=== PATIENT | male | born 1965 | race Caucasian/White ===

== ENCOUNTER 2019-09-13 06:19 | Day surgery (SDC) | payer MEDICARE, OTHER ==
[2019-09-09 10:20] VITALS: BMI 17.6
[~2019-09-13 06:19] MED LIST: DEXAMETHASONE SOD PHOSPHATE 10 MG/ML 1 ML VIAL IV ONE; HEPARIN SODIUM,PORCINE 5,000 UNIT/ML 1 ML VIAL SQ ONE; HYDROmorphone 0.5 MG/0.5 ML SYRINGE IVP PRN; LACTATED RINGERS 1,000 ML IV SCH; MIDAZOLAM 2 MG/2 ML VIAL IV PRN; Pre Op ABX Message 1 EACH MISC MISCELLANE ONE; SCOPOLAMINE 1.5MG/72HR PATCH TRANSDERM ONE
[2019-09-13] MEDS ORDERED: LIDOCAINE 1% 20 ML VIAL (10MG/ML) FOR IV START INTRADERMA ONE (07:04)
[2019-09-13] MEDS: ONDANSETRON 4 MG/2 ML VIAL IVP ONE ×2 (07:04→09:36)
[2019-09-13] MEDS ORDERED: fentaNYL (PF) 50 MCG/ML 2 ML AMP ONE (07:40)
[2019-09-13] MEDS ORDERED: MIDAZOLAM 2 MG/2 ML VIAL ONE (07:40)
[2019-09-13] MEDS ORDERED: PROPOFOL 10 MG/ML 20 ML VIAL IV ONE (07:40)
[2019-09-13] MEDS ORDERED: LIDOCAINE 1% INJ 10MG/ML (20 ML MDV) ONE (07:40)
--- NOTE | 2019-09-13 07:47 | P.GSHP ---
History of Present Illness H&P Date: 09/13/19 Chief Complaint: Right leg weakness This a 54-year-old male who is undergoing workup for his lower extremity weakness. Patient presents today for right thigh muscle biopsy Past Medical History Past Medical History: Asthma, COPD, Myocardial Infarction ([place]), Neurologic Disorder, Osteoarthritis (OA) Additional Past Medical History / Comment(s): DIFFICULTY SWALLOWING, ABDOMINAL PAIN, UNDIAGNOSED MOTOR NEURON DISORDER, "HAS OCCASIONAL DRAG FOOT" marfans syndrome, OCC. PANCREATITIS Last Myocardial Infarction Date:: unknown History of Any Multi-Drug Resistant Organisms: None Reported Past Surgical History: Heart Catheterization, Orthopedic Surgery Additional Past Surgical History / Comment(s): NASAL POLYPS, RT KNEE ARTHROSCOPY , COLONOSCOPY, EGD Past Anesthesia/Blood Transfusion Reactions: Motion Sickness Smoking Status: Former smoker - Past Family History Father Family Medical History: Cancer Medications and Allergies Home Medications Medication Instructions Recorded Confirmed Type ALPRAZolam [Xanax] 0.5 - 1 tab PO TID PRN 08/25/18 09/13/19 History Baclofen [Lioresal] 10 mg PO TID PRN 08/25/18 09/13/19 History Cholecalciferol [Vitamin D3] 2,000 unit PO DAILY 08/25/18 09/13/19 History Ferrous Sulfate [Feosol] 325 mg PO DAILY 08/25/18 09/13/19 History Glucosamine-Chondr 500-400Mg 1 each PO DAILY 08/25/18 09/13/19 History HYDROcodone/APAP 10-325MG [[place] 1 tab PO BID 08/25/18 09/13/19 History 10-325] Multivitamin [Men's Multi-Vitamin] 1 each PO DAILY 08/25/18 09/13/19 History Omeprazole [PriLOSEC] 40 mg PO DAILY 09/21/18 09/13/19 History Allergies Allergy/AdvReac Type Severity Reaction Status Date / Time bacitracin Allergy Rash/Hives Verified 09/13/19 06:46 [From Neosporin ([id number])] Egg Derived Allergy Anaphylaxis Verified 09/13/19 06:46 latex Allergy Rash/Hives Verified 09/13/19 06:46 neomycin Allergy Rash/Hives Verified 09/13/19 06:46 [From Neosporin ([id number])] polymyxin B Allergy Rash/Hives Verified 09/13/19 06:46 [From Neosporin ([id number])] sulfamethoxazole Allergy "LEGS BURN" Verified 09/13/19 06:46 [From Bactrim] trimethoprim [From Bactrim] Allergy "LEGS BURN" Verified 09/13/19 06:46 FLU VACCINE Allergy "DEATHLY Uncoded 09/13/19 06:46 ILL R/T EGG ALLERGY" Surgical - Exam Vital Signs Temp Pulse Resp BP Pulse Ox 98.1 F 66 16 137/85 98 09/13/19 06:43 09/13/19 06:43 09/13/19 06:43 09/13/19 06:43 09/13/19 06:43 - General well developed, well nourished, no distress - Eyes PERRL - ENT normal pinna - Neck no masses - Respiratory normal expansion - Cardiovascular Rhythm: regular - Abdomen Abdomen: soft, non tender - Musculoskeletal Right leg weakness. No evidence of muscle wasting Assessment and Plan Assessment: Right lower extremity weakness. Patient will undergo right thigh biopsied.
[2019-09-13] MEDS ORDERED: SODIUM CHLORIDE 0.9% 50 ML with ceFAZolin 2,000 MG IV ONE ×2 (08:17)
[2019-09-13] MEDS ORDERED: BUPIVACAINE (PF) 0.25% 30 ML VIAL SQ ONE (08:30)
[2019-09-13 08:59] VITALS: TEMP 97.1
--- NOTE | 2019-09-13 09:27 | P.OP ---
Date of Procedure: 09/13/19 Preoperative Diagnosis: Right leg myopathy Postoperative Diagnosis: Defer to pathology Procedure(s) Performed: Right thigh muscle biopsied Anesthesia: ESTEFANI Surgeon: Raj Dowling Estimated Blood Loss (ml): 5 Pathology: other (Right thigh muscle biopsy) Condition: stable Disposition: PACU Description of Procedure: The patient's placed on the operating table in the supine position. He received general anesthesia. His right thigh was prepped and draped usual sterile fashion. The skin was incised in the anterior mid thigh. Then using left cautery the subcutaneous tissue divided. The fascia was opened with sharp dissection. The muscles exposed. A suitable piece of muscle was then dissected. The muscles ligated proximally distally using 0 Vicryl ties. The specimen was then sent to pathology. The Bovie hemostasis. The fascia was then closed with 0 Vicryl. Skin was closed interrupted 3-0 Monocryl suture. Dermabond was applied. Patient tolerated the procedure well and will was sent to recovery room stable condition.
[2019-09-13 10:32] VITALS: BP 119/77; PULSE 57; RESP 18
== END 2019-09-13 10:46 | disposition home or self-care (01) ==
LOC: OR 06:19
PROVIDERS: ATTEND Surgery
DX: G72.9 Myopathy, unspecified (principal); J44.9 Chronic obstructive pulmonary disease, unspecified; M19.90 Unspecified osteoarthritis, unspecified site; Z87.891 Personal history of nicotine dependence; Z88.1 Allergy status to other antibiotic agents; Z88.2 Allergy status to sulfonamides; Z91.040 Latex allergy status; I25.2 Old myocardial infarction; Z79.891 Long term (current) use of opiate analgesic; Z79.899 Other long term (current) drug therapy; Z88.7 Allergy status to serum and vaccine; Z88.3 Allergy status to other anti-infective agents; Z91.012 Allergy to eggs
CPT/HCPCS: 20205; J2250; J1644; J1100; J2405; J0690; J2001; J3010; J2704

== ENCOUNTER → 2019-10-05 | Day surgery (SDC) | payer MEDICARE, OTHER ==
[2019-10-01 10:55] VITALS: BMI 17.0
[~2019-10-05] MED LIST changes: +DEXAMETHASONE SOD PHOSPHATE 4 MG/ML 1 ML VIAL ONE; +GLYCOPYRROLATE 0.2 MG/ML 2 ML VIAL ONE; -HYDROmorphone 0.5 MG/0.5 ML SYRINGE IVP PRN; +KETAMINE 10 MG/ML 20 ML VIAL ONE; +KETOROLAC 30 MG/ML 1 ML VIAL IVP ONE; +LIDOCAINE 1% INJ 10MG/ML (20 ML MDV) ONE; +LIDOCAINE 1%-EPI 1:100,000 20 ML VIAL SQ ONE; -MIDAZOLAM 2 MG/2 ML VIAL IV PRN; +MIDAZOLAM 2 MG/2 ML VIAL IVP ONE; +MIDAZOLAM 2 MG/2 ML VIAL ONE; +NEOSTIGMINE 1 MG/ML 10 ML VIAL ONE; +PROPOFOL 10 MG/ML 20 ML VIAL IV ONE; -Pre Op ABX Message 1 EACH MISC MISCELLANE ONE; +ROCURONIUM BROMIDE 10 MG/ML 10 ML VIAL IV ONE; +ROPIVACAINE 5 MG/ML 30 ML VIAL ONE; +fentaNYL (PF) 50 MCG/ML 2 ML AMP IVP ONE; +fentaNYL (PF) 50 MCG/ML 2 ML AMP ONE
[2019-10-05] MEDS: LIDOCAINE 1% 20 ML VIAL (10MG/ML) FOR IV START INTRADERMA PRN ×2 (06:46→06:47)
[2019-10-05] MEDS: ONDANSETRON 4 MG/2 ML VIAL IVP ONE ×2 (06:48→09:05)
--- NOTE | 2019-10-05 07:28 | P.ANPRN ---
Procedure Note - Anesthesia - Nerve Block Performed Bilateral Transversus Abdominis Single Time Out Performed: Yes Date of Procedure: 10/05/19 Procedure Start Time: Procedure Stop Time: Location of Patient: PreOp Indication: Acute Post-Operative Pain, Requested by Surgeon Sedation Type: Sedate with meaningful contact maintained Preparation: Sterile Prep Position: Supine Catheter: None Needle Types: Pajunk Needle Gauge: 21 Ultrasound used to visualize needle placement: Yes Ultrasound used to observe medication spread: Yes Injectate: Other (see comment) (0.25% ropivacaine 20cc + decadron 2mg-- per side) Blood Aspirated: No Pain Paresthesia on Injection Noted: No Resistance on Injection: Normal Image Stored and Saved: Yes Events: Uneventful and Well Tolerated
[2019-10-05 07:36] VITALS: TEMP 98.3
--- NOTE | 2019-10-05 07:52 | P.GSHP ---
History of Present Illness H&P Date: 10/05/19 Chief Complaint: Right inguinal hernia This a 54-year-old male was of the radial hernia. Patient rents today for laparoscopic robotic system repair. Past Medical History Past Medical History: Asthma, COPD, Myocardial Infarction ([place]), Neurologic Disorder, Osteoarthritis (OA) Additional Past Medical History / Comment(s): DIFFICULTY SWALLOWING, ABDOMINAL PAIN, UNDIAGNOSED MOTOR NEURON DISORDER, "HAS OCCASIONAL DRAG FOOT" marfans syndrome, OCC. PANCREATITIS Last Myocardial Infarction Date:: unknown History of Any Multi-Drug Resistant Organisms: None Reported Past Surgical History: Heart Catheterization, Orthopedic Surgery Additional Past Surgical History / Comment(s): 09/13/19 rt thigh muscle bx, NASAL POLYPS, RT KNEE ARTHROSCOPY , COLONOSCOPY, EGD Past Anesthesia/Blood Transfusion Reactions: Motion Sickness, Postoperative Nausea & Vomiting (PONV) Smoking Status: Former smoker - Past Family History Father Family Medical History: Cancer Medications and Allergies Home Medications Medication Instructions Recorded Confirmed Type ALPRAZolam [Xanax] 0.5 - 1 tab PO TID PRN 08/25/18 10/05/19 History Baclofen [Lioresal] 10 mg PO TID PRN 08/25/18 10/05/19 History Cholecalciferol [Vitamin D3] 2,000 unit PO DAILY 08/25/18 10/05/19 History Ferrous Sulfate [Feosol] 325 mg PO DAILY 08/25/18 10/05/19 History Glucosamine-Chondr 500-400Mg 1 each PO DAILY 08/25/18 10/05/19 History HYDROcodone/APAP 10-325MG [[place] 1 tab PO BID 08/25/18 10/05/19 History 10-325] Multivitamin [Men's Multi-Vitamin] 1 each PO DAILY 08/25/18 10/05/19 History Allergies Allergy/AdvReac Type Severity Reaction Status Date / Time bacitracin Allergy Rash/Hives Verified 10/05/19 06:16 [From Neosporin ([id number])] Egg Derived Allergy Anaphylaxis Verified 10/05/19 06:16 latex Allergy Rash/Hives Verified 10/05/19 06:16 neomycin Allergy Rash/Hives Verified 10/05/19 06:16 [From Neosporin ([id number])] polymyxin B Allergy Rash/Hives Verified 10/05/19 06:16 [From Neosporin ([id number])] sulfamethoxazole Allergy "LEGS BURN" Verified 10/05/19 06:16 [From Bactrim] trimethoprim [From Bactrim] Allergy "LEGS BURN" Verified 10/05/19 06:16 FLU VACCINE Allergy "DEATHLY Uncoded 10/05/19 06:16 ILL R/T EGG ALLERGY" Surgical - Exam Vital Signs Temp Pulse Resp BP Pulse Ox 98.3 F 69 16 136/84 99 10/05/19 06:20 10/05/19 06:20 10/05/19 06:20 10/05/19 06:20 10/05/19 06:20 - General well developed, well nourished, no distress - Eyes PERRL - ENT normal pinna - Neck no masses - Respiratory normal expansion - Cardiovascular Rhythm: regular - Abdomen Abdomen: soft, non tender Hernia: inguinal (Right inguinal hernia) Assessment and Plan Assessment: Radial hernia. We'll perform laparoscopic robotic system repair.
--- NOTE | 2019-10-05 08:40 | P.OP ---
Date of Procedure: 10/05/19 Preoperative Diagnosis: Right inguinal hernia Postoperative Diagnosis: Right inguinal hernia Procedure(s) Performed: laparoscopic robotic spare of right inguinal hernia Anesthesia: ESTEFANI Surgeon: Raj Dowling Estimated Blood Loss (ml): 5 Pathology: none sent Condition: stable Disposition: PACU Description of Procedure: The patient was placed on the operating table in the supine position. The patient received general anesthesia. The patient's abdomen was prepped and d raped in usual sterile fashion. The skin was anesthetized 1% local Xylocaine at the incision sites. Using an 11 blade a skin incision was made at the umbilicus. The fascia was grasped with a Varinder and then the peritoneal cavity was entered with the Veress needle. Position of the Veress needle was confirmed with a positive drop test. After adequate insufflation a 5 mm trocar was placed into the peritoneal cavity. The Laparoscope was placed the peritoneal cavity. And a robotic 8 mm trocar was placed in the right lateral position and then another 8 mm robotic trochars placed in the left lateral position. The original 5 mm trocar was exchanged for a 12 mm trocar. The patient was placed in reverse Trendelenburg and then the patient was docked to the robot. Next the peritoneum over top of the hernia was incised and then using blunt and sharp dissection and electrocautery the hernia sac was dissected free from the floor of the inguinal canal. The hernia sac was completely reduced into the peritoneal cavity. And then using the [employer] residential sales [employer] mesh the hernia was repaired. The peritoneum was then sutured with 2-0V lock suture. The patient was then undocked the robot. The needle was withdrawn from the peritoneal cavity. The umbilical trocar site was closed with 0 Ethibond suture. The skin was closed interrupted 3-0 Monocryl suture. Dermabond dressing was applied. Patient was s ent to recovery in stable condition.
[2019-10-05 08:50] VITALS: RESP 16
[2019-10-05] MEDS: HYDROmorphone 0.5 MG/0.5 ML SYRINGE IVP PRN ×2 (09:05→09:09)
[2019-10-05] MEDS: MEPERIDINE 50 MG/ML SYRINGE IVP ONE ×2 (09:12→09:15)
[2019-10-05 10:31] VITALS: BP 116/67; PULSE 82
== END | disposition home or self-care (01) ==
LOC: OR 05:42
PROVIDERS: ATTEND Surgery
DX: K40.90 Unilateral inguinal hernia, without obstruction or gangrene, not specified as recurrent (principal); J45.909 Unspecified asthma, uncomplicated; J44.9 Chronic obstructive pulmonary disease, unspecified; M19.90 Unspecified osteoarthritis, unspecified site; R29.90 Unspecified symptoms and signs involving the nervous system; Q87.40 Marfan syndrome, unspecified; I25.10 Atherosclerotic heart disease of native coronary artery without angina pectoris; R13.10 Dysphagia, unspecified; K85.90 Acute pancreatitis without necrosis or infection, unspecified; I25.2 Old myocardial infarction; Z79.891 Long term (current) use of opiate analgesic; Z87.891 Personal history of nicotine dependence; Z80.9 Family history of malignant neoplasm, unspecified; Z79.899 Other long term (current) drug therapy; Z88.2 Allergy status to sulfonamides; Z88.7 Allergy status to serum and vaccine; Z88.3 Allergy status to other anti-infective agents; Z91.012 Allergy to eggs; Z91.040 Latex allergy status
CPT/HCPCS: 49650; 64488; C1781; J2250; J1644; J1100 ×2; J2710; J2175; J0690; J2405; J2001; J3010; J1885; J2795; J2704; J1170

== ENCOUNTER 2019-10-09 19:46 | Inpatient (IN) | payer MEDICARE, OTHER ==
[2019-10-09] MEDS ORDERED: MORPHINE SULFATE 4 MG/ML SYRINGE IVP STA (20:16)
[2019-10-09] MEDS ORDERED: SODIUM CHLORIDE 0.9% 1,000 ML IV ONE (20:16)
[2019-10-09 20:46] LABS: Basophils % (A) 1 %; Eosinophils # (A) 0.4 k/uL (0-0.7); Eosinophils % (A) 8 %; HCT 42.1 % (39.0-53.0); HGB 13.8 gm/dL (13.0-17.5); Lymphocytes # (A) 1.6 k/uL (1.0-4.8); Lymphocytes % (A) 27 %; MCH 29.8 pg (25.0-35.0); MCHC 32.7 g/dL (31.0-37.0); MCV 91.1 fL (80.0-100.0); Mean Platelet Volume 7.2; Monocytes # (A) 0.5 k/uL (0-1.0); Monocytes % (A) 8 %; Neutrophils # (A) 3.2 k/uL (1.3-7.7); Neutrophils % (A) 54 %; Platelet Count 278 k/uL (150-450); RBC 4.62 m/uL (4.30-5.90); RDW 12.4 % (11.5-15.5); WBC 5.8 k/uL (3.8-10.6)
[2019-10-09 20:55] LABS: ALT 12 U/L (21-72); AST 22 U/L (17-59); African American GFR (CKD) >90 (>60 ml/min/1.73 sqM); Albumin 4.1 g/dL (3.5-5.0); Alkaline Phosphatase 85 U/L (38-126); Anion Gap 8 mmol/L; Blood Urea Nitrogen 24 mg/dL (9-20); Calcium 9.3 mg/dL (8.4-10.2); Carbon Dioxide 26 mmol/L (22-30); Chloride 106 mmol/L (98-107); Glucose 87 mg/dL (74-99); Non-African American GFR(CKD) >90 (>60 ml/min/1.73 sqM); Sodium 140 mmol/L (137-145); Total Bilirubin 0.7 mg/dL (0.2-1.3); Total Protein 7.1 g/dL (6.3-8.2)
--- NOTE | 2019-10-09 21:13 | ED ---
Abdominal Pain HPI - General Chief Complaint: Abdominal Pain Stated Complaint: Abd pain Time Seen by Provider: 10/09/19 19:50 Source: patient Mode of arrival: ambulatory Limitations: no limitations - History of Present Illness Initial Comments: The patient is a 54-year-old male with past medical history of Marfan's, COPD who presents emergency room with reported abdominal pain. He had surgery on Friday Dr. Dowling. He did have a right inguinal hernia which was laparoscopically repaired. He denies any mesh implantation. States that after the surgery he went home with [place]. He took the medications as directed. States that yesterday he began having increasing pain in his right lower quadrant. He also admits to midepigastric abdominal pain. He feels bloated and states that he can feel the gas in his abdomen move when he changes positions. He notified his surgery office who reported the patient should put warm compresses on his abdomen. States he has been doing this however the pressure has not gone down. States that it pushes on the stomach and makes him nauseated with decreased appetite. States that he has lost weight over the past 3 days. Admits to dehydration. He was able to eat something today and hold it down however he had to force it. He reports 2 normal bowel movements without constipation or diarrhea. No melanotic stools. He denies any changes in his urination to include dysuria, hematuria or difficulty voiding. No fevers or chills. Incisions are intact. Denies any skin changes. There are no other all eviating, precipitating or modifying factors - Related Data Home Medications Medication Instructions Recorded Confirmed ALPRAZolam [Xanax] 0.5 - 1 tab PO TID PRN 08/25/18 10/09/19 Baclofen [Lioresal] 10 mg PO TID PRN 08/25/18 10/09/19 Cholecalciferol [Vitamin D3] 2,000 unit PO DAILY 08/25/18 10/09/19 HYDROcodone/APAP 10-325MG [[place] 1 tab PO BID 08/25/18 10/09/19 10-325] Allergies Allergy/AdvReac Type Severity Reaction Status Date / Time bacitracin Allergy Rash/Hives Verified 10/09/19 22:17 [From Neosporin ([id number])] latex Allergy Rash/Hives Verified 10/09/19 22:17 neomycin Allergy Rash/Hives Verified 10/09/19 22:17 [From Neosporin ([id number])] polymyxin B Allergy Rash/Hives Verified 10/09/19 22:17 [From Neosporin ([id number])] sulfamethoxazole Allergy "LEGS BURN" Verified 10/09/19 22:17 [From Bactrim] trimethoprim [From Bactrim] Allergy "LEGS BURN" Verified 10/09/19 22:17 gluten AdvReac Abdominal Verified 10/10/19 00:08 Pain FLU VACCINE Allergy "DEATHLY Uncoded 10/09/19 19:52 ILL R/T EGG ALLERGY" Review of Systems ROS Statement: Those systems with pertinent positive or pertinent negative responses have been documented in the HPI. ROS Other: All systems not noted in ROS Statement are negative. Past Medical History Past Medical History: Asthma, COPD, Myocardial Infarction ([place]), Neurologic Disorder, Osteoarthritis (OA) Additional Past Medical History / Comment(s): DIFFICULTY SWALLOWING, ABDOMINAL PAIN, UNDIAGNOSED MOTOR NEURON DISORDER, "HAS OCCASIONAL DRAG FOOT" marfans syndrome, OCC. PANCREATITIS Last Myocardial Infarction Date:: unknown History of Any Multi-Drug Resistant Organisms: None Reported Past Surgical History: Heart Catheterization, Hernia Repair, Orthopedic Surgery Additional Past Surgical History / Comment(s): 09/13/19 rt thigh muscle bx, N CYNDI POLYPS, RT KNEE ARTHROSCOPY , COLONOSCOPY, EGD Past Anesthesia/Blood Transfusion Reactions: Motion Sickness, Postoperative Nausea & Vomiting (PONV) Past Psychological History: Anxiety Smoking Status: Former smoker Past Alcohol Use History: None Reported Past Drug Use History: Marijuana - Past Family History Father Family Medical History: Cancer General Exam Limitations: no limitations General appearance: alert, in no apparent distress Head exam: Present: atraumatic, normocephalic, normal inspection Eye exam: Present: normal appearance, PERRL, EOMI. Absent: scleral icterus, conjunctival injection, periorbital swelling ENT exam: Present: normal exam, mucous membranes dry Neck exam: Present: normal inspection. Absent: tenderness, meningismus, lymphadenopathy Respiratory exam: Present: normal lung sounds bilaterally. Absent: respiratory distress, wheezes, rales, rhonchi, stridor Cardiovascular Exam: Present: regular rate, normal rhythm, normal heart sounds. Absent: systolic murmur, diastolic murmur, rubs, gallop, clicks GI/Abdominal exam: Present: soft, distended, tenderness (rlq), normal bowel sounds. Absent: guarding, rebound, rigid Extremities exam: Present: normal inspection, full ROM, normal capillary refill. Absent: tenderness, pedal edema, joint swelling, calf tenderness Back exam: Present: normal inspection Neurological exam: Present: alert, oriented X3, CN II-XII intact Psychiatric exam: Present: normal affect, normal mood Skin exam: Present: warm, dry, intact, normal color. Absent: rash Course Vital Signs 10/09/19 10/09/19 19:50 22:50 Temperature 97.8 F 98.8 F Pulse Rate 73 57 L Respiratory 16 18 Rate Blood Pressure 143/93 131/91 O2 Sat by Pulse 100 99 Oximetry Medical Decision Making - Medical Decision Making Upon arrival the patient was placed into room 10. A thorough history and physical exam was performed. The patient is hooked to continuous pulse ox and cardiac monitoring. Peripheral IV is established the patient is given formal grams of morphine for pain control. I did recommend laboratory studies and a CT of the patient's abdomen and pelvis. CBC is unremarkable. CMP shows a BUN of 24. Urinalysis is remarkable for trace protein. CT of the patient's abdomen and pelvis reveals a moderate sized pneumoperitoneum. Not clear if this is typical 4 days after surgery. Because of the CT I did call discuss case with Dr. Rodas. He did recommend overnight observation. Bridging orders were placed. I will order pain medications for the patient. He is made nothing by mouth after midnight. The patient remained in stable condition and was transported to the floor - Lab Data Result diagrams: 10/11/19 06:34 10/11/19 06:34 Lab Results 10/09/19 10/09/19 10/09/19 Range/Units 20:30 20:30 20:30 WBC 5.8 (3.8-10.6) k/uL RBC 4.62 (4.30-5.90) m/uL Hgb 13.8 (13.0-17.5) gm/dL Hct 42.1 (39.0-53.0) % MCV 91.1 (80.0-100.0) fL MCH 29.8 (25.0-35.0) pg MCHC 32.7 (31.0-37.0) g/dL RDW 12.4 (11.5-15.5) % Plt Count 278 (150-450) k/uL Neutrophils % 54 % Lymphocytes % 27 % Monocytes % 8 % Eosinophils % 8 % Basophils % 1 % Neutrophils # 3.2 (1.3-7.7) k/uL Lymphocytes # 1.6 (1.0-4.8) k/uL Monocytes # 0.5 (0-1.0) k/uL Eosinophils # 0.4 (0-0.7) k/uL Basophils # 0.0 (0-0.2) k/uL Sodium 140 (137-145) mmol/L Potassium 4.0 (3.5-5.1) mmol/L Chloride 106 (98-107) mmol/L Carbon Dioxide 26 (22-30) mmol/L Anion Gap 8 mmol/L BUN 24 H (9-20) mg/dL Creatinine 0.94 (0.66-1.25) mg/dL Est GFR (CKD-EPI)AfAm >90 (>60 ml/min/1.73 sqM) Est GFR (CKD-EPI)NonAf >90 (>60 ml/min/1.73 sqM) Glucose 87 (74-99) mg/dL Plasma Lactic Acid Dimitry 1.2 (0.7-2.0) mmol/L Calcium 9.3 (8.4-10.2) mg/dL Total Bilirubin 0.7 (0.2-1.3) mg/dL AST 22 (17-59) U/L ALT 12 L (21-72) U/L Alkaline Phosphatase 85 (38-126) U/L Total Protein 7.1 (6.3-8.2) g/dL Albumin 4.1 (3.5-5.0) g/dL Lipase 81 (23-300) U/L Urine Color Urine Appearance (Clear) Urine pH (5.0-8.0) Ur Specific [place] (1.001-1.035) Urine Protein (Negative) Urine Glucose (UA) (Negative) Urine Ketones (Negative) Urine Blood (Negative) Urine Nitrite (Negative) Urine Bilirubin (Negative) Urine Urobilinogen (<2.0) mg/dL Ur Leukocyte Esterase (Negative) 10/09/19 10/10/19 10/10/19 Range/Units 21:40 06:55 06:55 WBC 6.0 (3.8-10.6) k/uL RBC 4.30 (4.30-5.90) m/uL Hgb 12.9 L (13.0-17.5) gm/dL Hct 39.4 (39.0-53.0) % MCV 91.6 (80.0-100.0) fL MCH 29.9 (25.0-35.0) pg MCHC 32.7 (31.0-37.0) g/dL RDW 12.4 (11.5-15.5) % Plt Count 257 (150-450) k/uL Neutrophils % 64 % Lymphocytes % 19 % Monocytes % 8 % Eosinophils % 7 % Basophils % 1 % Neutrophils # 3.9 (1.3-7.7) k/uL Lymphocytes # 1.2 (1.0-4.8) k/uL Monocytes # 0.5 (0-1.0) k/uL Eosinophils # 0.4 (0-0.7) k/uL Basophils # 0.0 (0-0.2) k/uL Sodium 141 (137-145) mmol/L Potassium 4.3 (3.5-5.1) mmol/L Chloride 108 H (98-107) mmol/L Carbon Dioxide 27 (22-30) mmol/L Anion Gap 6 mmol/L BUN 17 (9-20) mg/dL Creatinine 0.82 (0.66-1.25) mg/dL Est GFR (CKD-EPI)AfAm >90 (>60 ml/min/1.73 sqM) Est GFR (CKD-EPI)NonAf >90 (>60 ml/min/1.73 sqM) Glucose 90 (74-99) mg/dL Plasma Lactic Acid Dimitry (0.7-2.0) mmol/L Calcium 9.0 (8.4-10.2) mg/dL Total Bilirubin (0.2-1.3) mg/dL AST (17-59) U/L ALT (21-72) U/L Alkaline Phosphatase (38-126) U/L Total Protein (6.3-8.2) g/dL Albumin (3.5-5.0) g/dL Lipase (23-300) U/L Urine Color Yellow Urine Appearance Clear (Clear) Urine pH 5.5 (5.0-8.0) Ur Specific [place] >1.050 H (1.001-1.035) Urine Protein Trace H (Negative) Urine Glucose (UA) Negative (Negative) Urine Ketones Negative (Negative) Urine Blood Negative (Negative) Urine Nitrite Negative (Negative) Urine Bilirubin Negative (Negative) Urine Urobilinogen <2.0 (<2.0) mg/dL Ur Leukocyte Esterase Negative (Negative) 10/11/19 10/11/19 Range/Units 06:34 06:34 WBC 7.3 (3.8-10.6) k/uL RBC 4.34 (4.30-5.90) m/uL Hgb 13.1 (13.0-17.5) gm/dL Hct 39.9 (39.0-53.0) % MCV 91.8 (80.0-100.0) fL MCH 30.1 (25.0-35.0) pg MCHC 32.8 (31.0-37.0) g/dL RDW 12.5 (11.5-15.5) % Plt Count 262 (150-450) k/uL Neutrophils % 69 % Lymphocytes % 15 % Monocytes % 7 % Eosinophils % 6 % Basophils % 1 % Neutrophils # 5.0 (1.3-7.7) k/uL Lymphocytes # 1.1 (1.0-4.8) k/uL Monocytes # 0.5 (0-1.0) k/uL Eosinophils # 0.5 (0-0.7) k/uL Basophils # 0.0 (0-0.2) k/uL Sodium 141 (137-145) mmol/L Potassium 4.3 (3.5-5.1) mmol/L Chloride 108 H (98-107) mmol/L Carbon Dioxide 27 (22-30) mmol/L Anion Gap 6 mmol/L BUN 14 (9-20) mg/dL Creatinine 0.83 (0.66-1.25) mg/dL Est GFR (CKD-EPI)AfAm >90 (>60 ml/min/1.73 sqM) Est GFR (CKD-EPI)NonAf >90 (>60 ml/min/1.73 sqM) Glucose 89 (74-99) mg/dL Plasma Lactic Acid Dimitry (0.7-2.0) mmol/L Calcium 9.1 (8.4-10.2) mg/dL Total Bilirubin (0.2-1.3) mg/dL AST (17-59) U/L ALT (21-72) U/L Alkaline Phosphatase (38-126) U/L Total Protein (6.3-8.2) g/dL Albumin (3.5-5.0) g/dL Lipase (23-300) U/L Urine Color Urine Appearance (Clear) Urine pH (5.0-8.0) Ur Specific [place] (1.001-1.035) Urine Protein (Negative) Urine Glucose (UA) (Negative) Urine Ketones (Negative) Urine Blood (Negative) Urine Nitrite (Negative) Urine Bilirubin (Negative) Urine Urobilinogen (<2.0) mg/dL Ur Leukocyte Esterase (Negative) - EKG Data EKG Comments: EKG demonstrates a sinus rhythm with short AL interval. Rate of 61. AL interval 108. QRS 92. QTC of 400. There are no acute ST segment elevations or depressions concerning for ischemic changes Disposition Clinical Impression: Pneumoperitoneum, S/P inguinal hernia repair, Abdominal pain Disposition: ADMITTED IP TO THIS HOSP Condition: Stable Is patient prescribed a controlled substance at d/c from ED?: No Decision to Admit Reason: Admit from EC Decision Date: 10/09/19 Decision Time: 22:26
--- NOTE | 2019-10-09 21:47 | CT ---
EXAMINATION TYPE: CT abdomen pelvis w con DATE OF EXAM: 10/09/2019 COMPARISON: None HISTORY: Right inguinal hernia [address] DLP: 537.2 mGycm Automated exposure control for dose reduction was used. TECHNIQUE: Helical acquisition of images was performed from the lung bases through the pelvis. CONTRAST: Performed without Oral Contrast and with IV Contrast, patient injected with 100 mL of Isovue 300. FINDINGS: There is some mild atelectasis at the lung bases. Heart size is normal. There is no pericardial effus ion. There is a moderate pneumoperitoneum. Gallbladder appears normal. Liver has normal size and cont our. Spleen appears normal. There is no evidence of pancreatic mass. There is no adrenal mass. The stomach is intact. Kidneys show satisfactory contrast opacification. Th ere is no hydronephrosis. Ureters are not dilated. There is no retroperitoneal adenopathy. Delayed im ages show normal excretion. There is no evidence of a bowel obstruction. Bladder distends smoothly. There is no mesenteric edema. There is no ascites. There is soft tissue air in the right inguinal region from right inguinal surge ry. I see no pathologic fluid collection. Lumbar vertebra have normal spacing and alignment. Posterior elements are intact. Bony pelvis is inta ct. Abdominal aorta shows mild atheromatous change. IMPRESSION: MODERATE SIZED PNEUMOPERITONEUM. IT IS NOT CLEAR IF THIS IS TYPICAL 4 DAYS AFTER SURGERY. NO PATHOLOG IC FLUID COLLECTION SEEN TO SUGGEST AN ABSCESS. NO BOWEL OBSTRUCTION. NO EVIDENCE OF INGUINAL HERNIA. MINIMAL ATELECTASIS AT THE LUNG BASES.
[2019-10-09 22:18] LABS: Appearance,Urine Clear (Clear); Bilirubin,Urine Negative (Negative); Blood,Urine Negative (Negative); Color,Urine Yellow; Glucose,Urine (UA) Negative (Negative); Ketones,Urine Negative (Negative); Leukocyte Esterase,Urine Negative (Negative); Nitrite,Urine Negative (Negative); PH, Urine 5.5 (5.0-8.0); Protein,Urine Trace (Negative); Urobilinogen,Urine <2.0 mg/dL (<2.0)
[2019-10-09 22:22] LABS: Specific Gravity,Urine >1.050 (1.001-1.035)
[2019-10-09] MEDS ORDERED: MORPHINE SULFATE 4 MG/ML SYRINGE IV PRN (22:26)
[2019-10-09] MEDS ORDERED: ONDANSETRON 4 MG/2 ML VIAL IVP PRN (22:26)
[2019-10-09] MEDS ORDERED: NALOXONE 0.4 MG/ML 1 ML VIAL IV PRN (22:26)
[2019-10-09] MEDS: SODIUM CHLORIDE 0.9% 1,000 ML IV SCH (22:57)
[2019-10-09] MEDS: ALPRAZolam 0.5 MG TAB PO PRN (23:50)
[2019-10-10 07:44] LABS: Basophils % (A) 1 %; Eosinophils # (A) 0.4 k/uL (0-0.7); Eosinophils % (A) 7 %; HCT 39.4 % (39.0-53.0); HGB 12.9 gm/dL (13.0-17.5); Lymphocytes # (A) 1.2 k/uL (1.0-4.8); Lymphocytes % (A) 19 %; MCH 29.9 pg (25.0-35.0); MCHC 32.7 g/dL (31.0-37.0); MCV 91.6 fL (80.0-100.0); Mean Platelet Volume 7.2; Monocytes # (A) 0.5 k/uL (0-1.0); Monocytes % (A) 8 %; Neutrophils # (A) 3.9 k/uL (1.3-7.7); Neutrophils % (A) 64 %; Platelet Count 257 k/uL (150-450); RDW 12.4 % (11.5-15.5)
[2019-10-10 07:53] LABS: African American GFR (CKD) >90 (>60 ml/min/1.73 sqM); Anion Gap 6 mmol/L; Blood Urea Nitrogen 17 mg/dL (9-20); Carbon Dioxide 27 mmol/L (22-30); Chloride 108 mmol/L (98-107); Glucose 90 mg/dL (74-99); Non-African American GFR(CKD) >90 (>60 ml/min/1.73 sqM); Potassium 4.3 mmol/L (3.5-5.1); Sodium 141 mmol/L (137-145)
--- NOTE | 2019-10-10 10:43 | P.GSHP ---
History of Present Illness H&P Date: 10/10/19 Chief Complaint: Pneumoperitoneum Patient underwent laparoscopic repair inguinal hernia on Friday. Since that time the patient states he has had vague abdominal discomfort that has persisted. He admits it is better today than it was 2-3 days ago. Describes feeling a gas-like bowel movements moving in his upper abdomen. He actually contacted me by phone on with similar complaints. No nausea or vomiting. Good appetite. No fevers. Again pain has been gradually improving however he came to the ER yesterday since it had not gone away completely. CAT scan was performed which showed pneumoperitoneum. Some extraperitoneal gas is also visualized. White blood cell count is normal. He is afebrile. No tachycardia. Patient with history of Marfan syndrome. No shift on CBC. - Review of Systems Comment: The patient denies any acute changes in vision or hearing, no dysphagia or odynophagia, no chest pain or shortness of breath, no dysuria or hematuria, no headache, no runny nose, no rectal bleeding or melena, no unexplained weight loss Past Medical History Past Medical History: Asthma, COPD, Myocardial Infarction ([place]), Neurologic Disorder, Osteoarthritis (OA) Additional Past Medical History / Comment(s): DIFFICULTY SWALLOWING, ABDOMINAL PAIN, UNDIAGNOSED MOTOR NEURON DISORDER, "HAS OCCASIONAL DRAG FOOT" marfans syndrome, OCC. PANCREATITIS Last Myocardial Infarction Date:: unknown History of Any Multi-Drug Resistant Organisms: None Reported Past Surgical History: Heart Catheterization, Hernia Repair, Orthopedic Surgery Additional Past Surgical History / Comment(s): 09/13/19 rt thigh muscle bx, NASAL POLYPS, RT KNEE ARTHROSCOPY , COLONOSCOPY, EGD Past Anesthesia/Blood Transfusion Reactions: Motion Sickness, Postoperative Nausea & Vomiting (PONV) Past Psychological History: Anxiety Smoking Status: Former smoker Past Alcohol Use History: None Reported Past Drug Use History: Marijuana - Past Family History Father Family Medical History: Cancer Medications and Allergies Home Medications Medication Instructions Recorded Confirmed Type ALPRAZolam [Xanax] 0.5 - 1 tab PO TID PRN 08/25/18 10/09/19 History Baclofen [Lioresal] 10 mg PO TID PRN 08/25/18 10/09/19 History Cholecalciferol [Vitamin D3] 2,000 unit PO DAILY 10/16/18 11/30/19 History HYDROcodone/APAP 10-325MG [[place] 1 tab PO BID 08/25/18 10/09/19 History 10-325] Allergies Allergy/AdvReac Type Severity Reaction Status Date / Time bacitracin Allergy Rash/Hives Verified 10/09/19 22:17 [From Neosporin ([id number])] Egg Derived Allergy Anaphylaxis Verified 10/09/19 22:17 latex Allergy Rash/Hives Verified 10/09/19 22:17 neomycin Allergy Rash/Hives Verified 10/09/19 22:17 [From Neosporin ([id number])] polymyxin B Allergy Rash/Hives Verified 10/09/19 22:17 [From Neosporin ([id number])] sulfamethoxazole Allergy "LEGS BURN" Verified 10/09/19 22:17 [From Bactrim] trimethoprim [From Bactrim] Allergy "LEGS BURN" Verified 10/09/19 22:17 gluten AdvReac Abdominal Verified 10/10/19 00:08 Pain FLU VACCINE Allergy "DEATHLY Uncoded 10/09/19 19:52 ILL R/T EGG ALLERGY" Surgical - Exam Vital Signs Temp Pulse Resp BP Pulse Ox 97.8 F 73 16 143/93 100 10/09/19 19:50 10/09/19 19:50 10/09/19 19:50 10/09/19 19:50 10/09/19 19:50 Physical exam: General: Tall thin white male HEENT: Normocephalic, sclerae nonicteric Abdomen: Mild diffuse tenderness, incisions clean and dry, no rebound or guarding, nondistended Extremities: No edema Neuro: Alert and oriented Results - Labs 10/10/19 06:55 10/10/19 06:55 Abnormal Lab Results - Last 24 Hours (Table) 10/09/19 10/09/19 10/10/19 Range/Units 20:30 21:40 06:55 Hgb 12.9 L (13.0-17.5) gm/dL Chloride (98-107) mmol/L BUN 24 H (9-20) mg/dL ALT 12 L (21-72) U/L Ur Specific [place] >1.050 H (1.001-1.035) Urine Protein Trace H (Negative) 10/10/19 Range/Units 06:55 Hgb (13.0-17.5) gm/dL Chloride 108 H (98-107) mmol/L BUN (9-20) mg/dL ALT (21-72) U/L Ur Specific [place] (1.001-1.035) Urine Protein (Negative) Diabetes panel 10/09/19 10/10/19 Range/Units 20:30 06:55 Sodium 140 141 (137-145) mmol/L Potassium 4.0 4.3 (3.5-5.1) mmol/L Chloride 106 108 H (98-107) mmol/L Carbon Dioxide 26 27 (22-30) mmol/L BUN 24 H 17 (9-20) mg/dL Creatinine 0.94 0.82 (0.66-1.25) mg/dL Glucose 87 90 (74-99) mg/dL Calcium 9.3 9.0 (8.4-10.2) mg/dL AST 22 (17-59) U/L ALT 12 L (21-72) U/L Alkaline Phosphatase 85 (38-126) U/L Total Protein 7.1 (6.3-8.2) g/dL Albumin 4.1 (3.5-5.0) g/dL Calcium panel 10/09/19 10/10/19 Range/Units 20:30 06:55 Calcium 9.3 9.0 (8.4-10.2) mg/dL Albumin 4.1 (3.5-5.0) g/dL Pituitary panel 10/09/19 10/10/19 Range/Units 20:30 06:55 Sodium 140 141 (137-145) mmol/L Potassium 4.0 4.3 (3.5-5.1) mmol/L Chloride 106 108 H (98-107) mmol/L Carbon Dioxide 26 27 (22-30) mmol/L BUN 24 H 17 (9-20) mg/dL Creatinine 0.94 0.82 (0.66-1.25) mg/dL Glucose 87 90 (74-99) mg/dL Calcium 9.3 9.0 (8.4-10.2) mg/dL Adrenal panel 10/09/19 10/10/19 Range/Units 20:30 06:55 Sodium 140 141 (137-145) mmol/L Potassium 4.0 4.3 (3.5-5.1) mmol/L Chloride 106 108 H (98-107) mmol/L Carbon Dioxide 26 27 (22-30) mmol/L BUN 24 H 17 (9-20) mg/dL Creatinine 0.94 0.82 (0.66-1.25) mg/dL Glucose 87 90 (74-99) mg/dL Calcium 9.3 9.0 (8.4-10.2) mg/dL Total Bilirubin 0.7 (0.2-1.3) mg/dL AST 22 (17-59) U/L ALT 12 L (21-72) U/L Alkaline Phosphatase 85 (38-126) U/L Total Protein 7.1 (6.3-8.2) g/dL Albumin 4.1 (3.5-5.0) g/dL Assessment and Plan (1) Abdominal pain Narrative/Plan: 54-year-old male who underwent laparoscopic repair inguinal hernia. CAT scan was performed 4 days postoperatively showing larger than expected volume of pneumoperitoneum. Patient describes feeling discomfort upper abdomen and the sensation of a gas bubble. Clinically patient does not appear toxic and his abdominal exam is relatively benign. White blood cell count is normal 2 with no shift, afebrile, no tachycardia. Continue observation for now. Continue diet as tolerated. Will reevaluate in a.m. Current Visit: Yes Status: Acute Code(s): R10.9 - UNSPECIFIED ABDOMINAL PAIN SNOMED Code(s): 29001133
[2019-10-10] MEDS: HYDROcodone/APAP 5-325MG 1 EACH TAB PO PRN ×2 (10:52→17:25)
[2019-10-10] MEDS: SODIUM CHLORIDE 0.9% 1,000 ML IV SCH ×2 (11:39→19:39)
[2019-10-10 13:00] VITALS: BMI 16.2
[2019-10-10] MEDS: FAMOTIDINE 20 MG/2 ML VIAL IV SCH (19:38)
[2019-10-10] MEDS: ALPRAZolam 0.5 MG TAB PO PRN (23:15)
[2019-10-11 07:00] LABS: Basophils % (A) 1 %; Eosinophils # (A) 0.5 k/uL (0-0.7); Eosinophils % (A) 6 %; HCT 39.9 % (39.0-53.0); HGB 13.1 gm/dL (13.0-17.5); Lymphocytes # (A) 1.1 k/uL (1.0-4.8); Lymphocytes % (A) 15 %; MCH 30.1 pg (25.0-35.0); MCHC 32.8 g/dL (31.0-37.0); MCV 91.8 fL (80.0-100.0); Mean Platelet Volume 6.9; Monocytes # (A) 0.5 k/uL (0-1.0); Monocytes % (A) 7 %; Neutrophils % (A) 69 %; Platelet Count 262 k/uL (150-450); RBC 4.34 m/uL (4.30-5.90); RDW 12.5 % (11.5-15.5); WBC 7.3 k/uL (3.8-10.6)
[2019-10-11 07:34] LABS: African American GFR (CKD) >90 (>60 ml/min/1.73 sqM); Anion Gap 6 mmol/L; Blood Urea Nitrogen 14 mg/dL (9-20); Calcium 9.1 mg/dL (8.4-10.2); Carbon Dioxide 27 mmol/L (22-30); Chloride 108 mmol/L (98-107); Glucose 89 mg/dL (74-99); Non-African American GFR(CKD) >90 (>60 ml/min/1.73 sqM); Potassium 4.3 mmol/L (3.5-5.1); Sodium 141 mmol/L (137-145)
[2019-10-11] MEDS: FAMOTIDINE 20 MG/2 ML VIAL IV SCH (07:49)
--- NOTE | 2019-10-11 08:37 | XR ---
EXAMINATION TYPE: XR abdomen 2V DATE OF EXAM: 10/11/2019 CLINICAL HISTORY: Recent abdominal surgery with pain. TECHNIQUE: Supine, upright, and left side down lateral decubitus views of the abdomen are obtained. COMPARISON: CT abdomen and pelvis 2 days ago. FINDINGS: Persistent pneumoperitoneum. Gas in nondistended stomach. Scattered gas is seen in non-dist ended small and large bowel loops. Gas and fecal material is seen in non-distended rectum. There is no suspicious calcification appreciated. The lung bases remain clear and the osseous structures are intact. IMPRESSION: Overall nonobstructive bowel gas pattern. Persistent nonspecific pneumoperitoneum given history of recent intra-abdominal surgery.
--- NOTE | 2019-10-11 13:21 | P.DS ---
Providers Date of admission: 10/11/19 11:34 Expected date of discharge: 10/11/19 Attending physician: Raj Dowling Primary care physician: Liane Peng [facility] Course: 54-year-old male who recently underwent laparoscopic inguinal hernia repair. Patient was readmitted to the hospital secondary to abdominal pain. CT scan performed revealed pneumoperitoneum. WBC normal. Vital signs have been stable. Pain has improved since admission. Patient is tolerating diet. He is anxious to be discharged home. He is stable for DC today. He is to follow up with Dr. Dowling outpatient. Please see EMR for further hospital course details. Discharge Diagnosis 1. Postoperative pain 2. Recent inguinal hernia repair Nurse practitioner note has been reviewed by physician. Signing provider agrees with the documented findings, assessment, and plan of care. Patient Condition at Discharge: Stable Plan - Discharge Summary Discharge Rx Participant: Yes New Discharge Prescriptions: No Action Cholecalciferol [Vitamin D3] 2,000 unit PO DAILY Baclofen [Lioresal] 10 mg PO TID PRN PRN Reason: Muscle Pain HYDROcodone/APAP 10-325MG [[employer] 10-325] 1 tab PO BID ALPRAZolam [Xanax] 0.5 - 1 tab PO TID PRN PRN Reason: Anxiety Discharge Medication List ALPRAZolam [Xanax] 0.5 - 1 tab PO TID PRN 08/25/18 [History] Baclofen [Lioresal] 10 mg PO TID PRN 08/25/18 [History] Cholecalciferol [Vitamin D3] 2,000 unit PO DAILY 08/25/18 [History] HYDROcodone/APAP 10-325MG [[employer] 10-325] 1 tab PO BID 08/25/18 [History] Follow up Appointment(s)/Referral(s): Liane Peng DO [Primary Care Provider] - 1-2 days
[2019-10-11] MEDS: HYDROcodone/APAP 5-325MG 1 EACH TAB PO PRN (13:50)
[2019-10-11] MEDS: SODIUM CHLORIDE 0.9% 1,000 ML IV SCH (14:05)
[2019-10-11 14:56] VITALS: BP 137/83; PULSE 72; RESP 16; TEMP 97.9
== END 2019-10-11 17:00 | disposition home or self-care (01) | DRG 948 ==
LOC: EC 19:46 → 4SSUR 22:26 → OBSVTOIN 10-11 11:34
PROVIDERS: ADMIT Surgery; ATTEND Surgery
DX: G89.18 Other acute postprocedural pain (principal); Q87.40 Marfan syndrome, unspecified; G12.20 Motor neuron disease, unspecified; F41.9 Anxiety disorder, unspecified; I25.2 Old myocardial infarction; J44.9 Chronic obstructive pulmonary disease, unspecified; Z87.891 Personal history of nicotine dependence; Z88.2 Allergy status to sulfonamides; Z88.7 Allergy status to serum and vaccine; Z88.1 Allergy status to other antibiotic agents; Z91.012 Allergy to eggs; M19.90 Unspecified osteoarthritis, unspecified site; R13.10 Dysphagia, unspecified
CPT/HCPCS: 36415; 74019; 74177; 80048; 80053; 81003; 83605; 83690; 85025; 93005; 96361; 96374; 99285

== ENCOUNTER → 2020-01-07 | Outpatient (CLI) | payer MEDICARE, OTHER ==
--- NOTE | 2020-01-07 08:01 | US ---
EXAMINATION TYPE: US abdomen complete DATE OF EXAM: 01/07/2020 COMPARISON: NONE CLINICAL HISTORY: R10.9 Unspecified abdominal pain. Pain had hernia repair in September. EXAM MEASUREMENTS: Liver Length: 14.9 cm Gallbladder Wall: .3 cm CBD: .5 cm Spleen: 8.2 cm Right Kidney: 9.8 x 3.8 x 4.5 cm Left Kidney: 10.0 x 4.8 x 4.3 cm Pancreas: wnl Liver: wnl Gallbladder: wnl Evidence for sonographic Waddell's sign: No CBD: wnl Spleen: wnl Right Kidney: Focal cortical scarring is seen versus benign junctional defect. Left Kidney: wnl Upper IVC: wnl Abd Aorta: wnl The liver is homogenous. The intrahepatic portion of the IVC and proximal abdominal aorta are within normal limits. There is no evidence of cholelithiasis. Common bile duct is unremarkable. The visu alized portions of the pancreas are homogenous. The spleen is unremarkable. Kidneys are symmetric a nd free of hydronephrosis. No renal lesions are seen. IMPRESSION: Unremarkable abdominal ultrasound. No sonographic evidence of cholelithiasis nor acute ch olecystitis.
== END | disposition home or self-care (01) ==
LOC: RADUSWWP 06:59
PROVIDERS: ATTEND Internal Medicine
DX: R10.9 Unspecified abdominal pain (principal)
CPT/HCPCS: 76700

== ENCOUNTER → 2020-05-29 | Outpatient (CLI) | payer MEDICARE, OTHER ==
[2020-05-29 08:28] LABS: Basophils # (A) 0.1 k/uL (0-0.2); Basophils % (A) 1 %; Eosinophils # (A) 0.6 k/uL (0-0.7); Eosinophils % (A) 7 %; HCT 44.2 % (39.0-53.0); HGB 13.8 gm/dL (13.0-17.5); Lymphocytes # (A) 1.4 k/uL (1.0-4.8); Lymphocytes % (A) 18 %; MCH 29.3 pg (25.0-35.0); MCHC 31.1 g/dL (31.0-37.0); MCV 94.1 fL (80.0-100.0); Mean Platelet Volume 7.5; Monocytes # (A) 0.5 k/uL (0-1.0); Monocytes % (A) 6 %; Neutrophils % (A) 65 %; Platelet Count 262 k/uL (150-450); RDW 12.9 % (11.5-15.5); WBC 7.7 k/uL (3.8-10.6)
[2020-05-29 08:40] LABS: Appearance,Urine Clear (Clear); Bilirubin,Urine Negative (Negative); Blood,Urine Negative (Negative); Color,Urine Yellow; Glucose,Urine (UA) Negative (Negative); Ketones,Urine Negative (Negative); Leukocyte Esterase,Urine Negative (Negative); Nitrite,Urine Negative (Negative); Protein,Urine Negative (Negative); Specific Gravity,Urine 1.013 (1.001-1.035); Urobilinogen,Urine <2.0 mg/dL (<2.0)
[2020-05-29 16:46] LABS: % Iron Saturation 21.99 (15.00-50.00); ALT 14 U/L (10-49); AST 24 U/L (14-35); African American GFR (CKD) 99.1 (60.0-200.0); Albumin/Globulin Ratio 1.71 (1.60-3.17); Alkaline Phosphatase 96 U/L (41-126); Amylase 137 U/L (23-121); Calcium 9.4 mg/dL (8.7-10.3); Carbon Dioxide 29.1 mmol/L (21.6-31.8); Chloride 107 mmol/L (96-109); Globulin 2.4 g/dL (1.6-3.3); Glucose 97 mg/dL (70-110); Iron 64 ug/dL (65-175); Magnesium 1.8 mg/dL (1.5-2.4); Non-African American GFR(CKD) 85.5 (60.0-200.0); Potassium 5.2 mmol/L (3.5-5.5); Sodium 142 mmol/L (135-145); Total Bilirubin 0.6 mg/dL (0.3-1.2); Total Iron Binding Capacity 291 ug/dL (228-460); Total Protein 6.5 g/dL (6.2-8.2)
[2020-05-29 16:55] LABS: Ferritin 150.1 ng/mL (22.0-322.0)
[2020-05-29 18:25] LABS: Folate, Serum >24.0 ng/mL
== END | disposition home or self-care (01) ==
LOC: LABWHC1 07:56
PROVIDERS: ATTEND Internal Medicine
DX: E72.11 Homocystinuria (principal); E55.9 Vitamin D deficiency, unspecified
CPT/HCPCS: 36415; 80053; 81003; 82150; 82306; 82607; 82728; 82746; 83090; 83540; 83550; 83690; 83735; 84439; 84443; 84481; 85025

== ENCOUNTER → 2020-07-31 | Outpatient (CLI) | payer MEDICARE, OTHER ==
--- NOTE | 2020-07-31 10:28 | CT ---
EXAMINATION TYPE: CT abdomen wo/w con DATE OF EXAM: 07/31/2020 COMPARISON: CT 10/09/2019, ultrasound 01/07/2020 HISTORY: Lt sided pain, LUQ pain CT DLP: 399.3 mGycm Automated exposure control for dose reduction was used. TECHNIQUE: Helical acquisition of images was performed from the lung bases through the top of iliac crest to include entire abdomen. CONTRAST: Performed with Oral Contrast and without and with IV Contrast, patient injected with 100 mL of Isovue 300. FINDINGS: LUNG BASES: No some basilar scarring is stable. LIVER/GB: No significant interval change is appreciated, low dense focus within the left lobe and rig ht lobe of the liver are stable and likely represent cysts, gallbladder is normal. PANCREAS: No significant abnormality is seen. SPLEEN: No significant abnormality is seen. ADRENALS: No significant abnormality is seen. KIDNEYS: No significant abnormality is seen. BOWEL: No significant abnormality is seen. LYMPH NODES: No significant abnormality is appreciated. OSSEOUS STRUCTURES: No significant abnormality is seen. FREE AIR: No Free Air visible ASCITES: None visible. RETROPERITONEAL ADENOPATHY: No Retroperitoneal Adenopathy visible. OTHER: Atheromatous change present within the aorta. IMPRESSION: NO ABNORMALITY EVIDENT TO ACCOUNT FOR PATIENT'S SYMPTOMS
== END | disposition home or self-care (01) ==
LOC: RADCTMAIN 07:19
PROVIDERS: ATTEND Internal Medicine
DX: R10.12 Left upper quadrant pain (principal); K86.1 Other chronic pancreatitis
CPT/HCPCS: 74170; Q9967

== ENCOUNTER 2020-11-07 14:14 | Emergency (ER) | payer MEDICARE, OTHER ==
[2020-11-07 14:19] VITALS: TEMP 98.4
[2020-11-07] MEDS ORDERED: SODIUM CHLORIDE 0.9% 500 ML 500 ML IV STA (14:53)
[2020-11-07 15:17] LABS: Basophils # (A) 0.1 k/uL (0-0.2); Basophils % (A) 2 %; Eosinophils # (A) 0.4 k/uL (0-0.7); Eosinophils % (A) 5 %; HCT 42.5 % (39.0-53.0); HGB 14.2 gm/dL (13.0-17.5); Lymphocytes # (A) 1.9 k/uL (1.0-4.8); Lymphocytes % (A) 25 %; MCH 30.4 pg (25.0-35.0); MCHC 33.5 g/dL (31.0-37.0); MCV 90.8 fL (80.0-100.0); Mean Platelet Volume 7.9; Monocytes # (A) 0.5 k/uL (0-1.0); Monocytes % (A) 7 %; Neutrophils # (A) 4.5 k/uL (1.3-7.7); Neutrophils % (A) 59 %; Platelet Count 216 k/uL (150-450); RBC 4.68 m/uL (4.30-5.90); RDW 12.6 % (11.5-15.5); WBC 7.7 k/uL (3.8-10.6)
--- NOTE | 2020-11-07 15:25 | ED ---
General Adult HPI - General Chief complaint: Neuro Symptoms/Deficit Stated complaint: Neuro Symptoms Time Seen by Provider: 11/07/20 14:15 Source: patient, RN notes reviewed, old records reviewed Mode of arrival: ambulatory Limitations: no limitations - History of Present Illness Initial comments: This is a 55-year-old male who has a past medical history significant for Marfan syndrome as well as muscular dystrophy. Patient comes into the emergency d epartment today stating that he started having some facial numbness on the right side of his face as well as some hot feeling to his tongue started last night. Patient states today he's noticed that he is unable to completely shut his right eye and that his forehead is weak on the right side. Patient denies any new numbness or weakness anywhere else. Patient denies any headache patient denies any trauma patient denies any recent illness. Patient denies any fever chills or cough. - Related Data Home Medications Medication Instructions Recorded Confirmed ALPRAZolam [Xanax] 0.5 tab PO TID PRN 08/25/18 11/07/20 Baclofen [Lioresal] 10 mg PO TID PRN 08/25/18 11/07/20 HYDROcodone/APAP 10-325MG [[place] 1 tab PO TID 08/25/18 11/07/20 10-325] Carvedilol [Coreg] 3.125 mg PO DAILY 11/07/20 11/07/20 Pnv 27-1 1 tab PO DAILY 11/07/20 11/07/20 Previous Rx's Medication Instructions Recorded predniSONE [Deltasone] 20 mg PO TID #30 tab 11/07/20 valACYclovir HCL 1,000 mg PO TID #30 tab 11/07/20 Allergies Allergy/AdvReac Type Severity Reaction Status Date / Time bacitracin Allergy Rash/Hives Verified 11/07/20 15:23 [From Neosporin ([id number])] latex Allergy Rash/Hives Verified 11/07/20 15:23 neomycin Allergy Rash/Hives Verified 11/07/20 15:23 [From Neosporin ([id number])] polymyxin B Allergy Rash/Hives Verified 11/07/20 15:23 [From Neosporin ([id number])] sulfamethoxazole Allergy "LEGS BURN" Verified 11/07/20 15:23 [From Bactrim] trimethoprim [From Bactrim] Allergy "LEGS BURN" Verified 11/07/20 15:23 gluten AdvReac Abdominal Verified 11/07/20 15:23 Pain FLU VACCINE Allergy "DEATHLY Uncoded 11/07/20 14:17 ILL R/T EGG ALLERGY" Review of Systems ROS Statement: Those systems with pertinent positive or pertinent negative responses have been documented in the HPI. ROS Other: All systems not noted in ROS Statement are negative. Past Medical History Past Medical History: Asthma, COPD, Myocardial Infarction ([place]), Neurologic Disorder, Osteoarthritis (OA) Additional Past Medical History / Comment(s): DIFFICULTY SWALLOWING, ABDOMINAL PAIN, UNDIAGNOSED MOTOR NEURON DISORDER, "HAS OCCASIONAL DRAG FOOT" marfans syndrome, OCC. PANCREATITIS Last Myocardial Infarction Date:: unknown History of Any Multi-Drug Resistant Organisms: None Reported Past Surgical History: Heart Catheterization, Hernia Repair, Orthopedic Surgery Additional Past Surgical History / Comment(s): 09/13/19 rt thigh muscle bx, NASAL POLYPS, RT KNEE ARTHROSCOPY , COLONOSCOPY, EGD Past Anesthesia/Blood Transfusion Reactions: Motion Sickness, Postoperative Nausea & Vomiting (PONV) Past Psychological History: Anxiety Smoking Status: Never smoker Past Alcohol Use History: None Reported Past Drug Use History: Marijuana - Past Family History Father Family Medical History: Cancer General Exam - General Exam Comments Initial Comments: GENERAL: Patient is well-developed and well-nourished. Patient is nontoxic and well- hydrated and is in no acute distress. ENT: Neck is soft and supple. No significant lymphadenopathy is noted. Oropharynx is clear. Moist mucous membranes. Neck has full range of motion without eliciting any pain. EYES: The sclera were anicteric and conjunctiva were pink and moist. Extraocular movements were intact and pupils were equal round and reactive to light. Eyelids were unremarkable. PULMONARY: Unlabored respirations. Good breath sounds bilaterally. No audible rales rho nchi or wheezing was noted. CARDIOVASCULAR: There is a regular rate and rhythm without any murmurs gallops or rubs. ABDOMEN: Soft and nontender with normal bowel sounds. SKIN: Skin is clear with no lesions or rashes and otherwise unremarkable. NEUROLOGIC: Patient is alert and oriented x3. Patient has such facial droop on the right side. Patient has some weakness of the right side of the forehead. The left and patient is unable to fully close the right upper eyelid. Motor and sensory are also intact. Normal speech, volume and content. Symmetrical smile. MUSCULOSKELETAL: Normal extremities with adequate strength and full range of motion. LYMPHATICS: No significant lymphadenopathy is noted PSYCHIATRIC: Normal psychiatric evaluation. Limitations: no limitations Course Vital Signs 11/07/20 11/07/20 11/07/20 14:17 15:00 15:30 Temperature 98.4 F Pulse Rate 71 57 L 56 L Respiratory 16 19 17 Rate Blood Pressure 138/80 148/99 123/76 O2 Sat by Pulse 100 99 99 Oximetry Medical Decision Making - Medical Decision Making EKG shows sinus bradycardia 58 bpm MS interval is on a 50 QRS 94 Q-T intervals 398 QTC is 390. Patient's EKG shows no ST segment elevation or depression. CT of the brain shows no acute abnormality. Patient's CT did show some sinusitis: I talked to the patient about this he stated he did not want go on antibiotics because they have tried him on antibiotics before that never works he says this is been an ongoing problem since she was a teenager - Lab Data Result diagrams: 11/07/20 14:45 11/07/20 14:45 Lab Results 11/07/20 11/07/20 11/07/20 Range/Units 14:45 14:45 14:45 WBC 7.7 (3.8-10.6) k/uL RBC 4.68 (4.30-5.90) m/uL Hgb 14.2 (13.0-17.5) gm/dL Hct 42.5 (39.0-53.0) % MCV 90.8 (80.0-100.0) fL MCH 30.4 (25.0-35.0) pg MCHC 33.5 (31.0-37.0) g/dL RDW 12.6 (11.5-15.5) % Plt Count 216 (150-450) k/uL MPV 7.9 Neutrophils % 59 % Lymphocytes % 25 % Monocytes % 7 % Eosinophils % 5 % Basophils % 2 % Neutrophils # 4.5 (1.3-7.7) k/uL Lymphocytes # 1.9 (1.0-4.8) k/uL Monocytes # 0.5 (0-1.0) k/uL Eosinophils # 0.4 (0-0.7) k/uL Basophils # 0.1 (0-0.2) k/uL PT 10.1 (9.0-12.0) sec INR 1.0 (<1.2) APTT 28.2 (22.0-30.0) sec Sodium 138 (137-145) mmol/L Potassium 4.3 (3.5-5.1) mmol/L Chloride 106 (98-107) mmol/L Carbon Dioxide 28 (22-30) mmol/L Anion Gap 4 mmol/L BUN 19 (9-20) mg/dL Creatinine 0.91 (0.66-1.25) mg/dL Est GFR (CKD-EPI)AfAm >90 (>60 ml/min/1.73 sqM) Est GFR (CKD-EPI)NonAf >90 (>60 ml/min/1.73 sqM) Glucose 101 H (74-99) mg/dL Calcium 9.3 (8.4-10.2) mg/dL Total Bilirubin 0.5 (0.2-1.3) mg/dL AST 40 (17-59) U/L ALT 16 (4-49) U/L Alkaline Phosphatase 84 (38-126) U/L Troponin I (0.000-0.034) ng/mL Total Protein 7.4 (6.3-8.2) g/dL Albumin 4.1 (3.5-5.0) g/dL 11/07/20 Range/Units 14:45 WBC (3.8-10.6) k/uL RBC (4.30-5.90) m/uL Hgb (13.0-17.5) gm/dL Hct (39.0-53.0) % MCV (80.0-100.0) fL MCH (25.0-35.0) pg MCHC (31.0-37.0) g/dL RDW (11.5-15.5) % Plt Count (150-450) k/uL MPV Neutrophils % % Lymphocytes % % Monocytes % % Eosinophils % % Basophils % % Neutrophils # (1.3-7.7) k/uL Lymphocytes # (1.0-4.8) k/uL Monocytes # (0-1.0) k/uL Eosinophils # (0-0.7) k/uL Basophils # (0-0.2) k/uL PT (9.0-12.0) sec INR (<1.2) APTT (22.0-30.0) sec Sodium (137-145) mmol/L Potassium (3.5-5.1) mmol/L Chloride (98-107) mmol/L Carbon Dioxide (22-30) mmol/L Anion Gap mmol/L BUN (9-20) mg/dL Creatinine (0.66-1.25) mg/dL Est GFR (CKD-EPI)AfAm (>60 ml/min/1.73 sqM) Est GFR (CKD-EPI)NonAf (>60 ml/min/1.73 sqM) Glucose (74-99) mg/dL Calcium (8.4-10.2) mg/dL Total Bilirubin (0.2-1.3) mg/dL AST (17-59) U/L ALT (4-49) U/L Alkaline Phosphatase (38-126) U/L Troponin I <0.012 (0.000-0.034) ng/mL Total Protein (6.3-8.2) g/dL Albumin (3.5-5.0) g/dL Disposition Clinical Impression: Balbuena's palsy Disposition: HOME SELF-CARE Condition: Good Instructions (If sedation given, give patient instructions): Balbuena Palsy (ED) Prescriptions: predniSONE [Deltasone] 20 mg PO TID #30 tab valACYclovir HCL 1,000 mg PO TID #30 tab Is patient prescribed a controlled substance at d/c from ED?: No Referrals: Liane Peng DO [Primary Care Provider] - 1-2 days Time of Disposition: 15:57
--- NOTE | 2020-11-07 15:27 | XR ---
EXAMINATION TYPE: XR chest 2V DATE OF EXAM: 11/07/2020 COMPARISON: NONE HISTORY: Right-sided facial numbness and weakness. TECHNIQUE: Frontal and lateral views of the chest are obtained. FINDINGS: Background chronic emphysematous change. There is no focal air space opacity, pleural effu anabell, or pneumothorax seen. The cardiac silhouette size is within normal limits. Slight underlying s coliotic curvature. Overlying EKG leads. IMPRESSION: Chronic emphysematous change without acute pulmonary process.
[2020-11-07 15:30] LABS: ALT 16 U/L (4-49); AST 40 U/L (17-59); African American GFR (CKD) >90 (>60 ml/min/1.73 sqM); Albumin 4.1 g/dL (3.5-5.0); Alkaline Phosphatase 84 U/L (38-126); Anion Gap 4 mmol/L; Blood Urea Nitrogen 19 mg/dL (9-20); Calcium 9.3 mg/dL (8.4-10.2); Carbon Dioxide 28 mmol/L (22-30); Chloride 106 mmol/L (98-107); Glucose 101 mg/dL (74-99); Non-African American GFR(CKD) >90 (>60 ml/min/1.73 sqM); Sodium 138 mmol/L (137-145); Total Bilirubin 0.5 mg/dL (0.2-1.3); Total Protein 7.4 g/dL (6.3-8.2)
[2020-11-07 15:31] LABS: Partial Thromboplastin Time 28.2 sec (22.0-30.0); Prothrombin Time 10.1 sec (9.0-12.0)
[2020-11-07 15:34] LABS: Potassium 4.3 mmol/L (3.5-5.1)
--- NOTE | 2020-11-07 15:50 | CT ---
EXAMINATION TYPE: CT brain wo con DATE OF EXAM: 11/07/2020 COMPARISON: None HISTORY: Right sided facial numbness. CT DLP: 1133.4 mGycm Automated exposure control for dose reduction was used. Helical acquisition through the brain. FINDINGS: There is inflammatory change within the ethmoid air cells and sphenoid sinus, air-fluid level present in the right greater than left maxillary sinus. There is no hemorrhage or hydrocephalus.33 IMPRESSION: EXTENSIVE SINUS DISEASE. NO ACUTE BRAIN ABNORMALITY, CONSIDER BRAIN MRI INDICATED.
[2020-11-07 15:55] VITALS: BP 123/76; PULSE 56; RESP 17
== END 2020-11-07 16:06 | disposition home or self-care (01) ==
LOC: EC 14:14
DX: G51.0 Bell's palsy (principal); R00.0 Tachycardia, unspecified; Q87.40 Marfan syndrome, unspecified; F41.9 Anxiety disorder, unspecified; I25.2 Old myocardial infarction; M19.90 Unspecified osteoarthritis, unspecified site; Z79.891 Long term (current) use of opiate analgesic; Z79.899 Other long term (current) drug therapy; Z88.2 Allergy status to sulfonamides; Z88.7 Allergy status to serum and vaccine; Z88.1 Allergy status to other antibiotic agents; Z91.040 Latex allergy status; Z88.8 Allergy status to other drugs, medicaments and biological substances; Z95.5 Presence of coronary angioplasty implant and graft
CPT/HCPCS: 36415; 70450; 71046; 80053; 84484; 85025; 85610; 85730; 93005; 99285

== ENCOUNTER → 2021-01-04 | Outpatient (CLI) | payer MEDICARE, OTHER ==
--- NOTE | 2021-01-05 17:58 | ECHOF ---
Referral Reason:marfans MEASUREMENTS -------- HEIGHT: 182.9 cm WEIGHT: 60.8 kg BP: RVIDd: 3.1 cm (< 3.3) IVSd: 1.1 cm (0.6 - 1.1) LVIDd: 4.8 cm (3.9 - 5.3) LVPWd: 1.3 cm (0.6 - 1.1) IVSs: 1.4 cm LVIDs: 3.1 cm LVPWs: 1.7 cm LAESV Index (A-L): 22.41 ml/m Ao Diam: 3.4 cm (2.0 - 3.7) AV Cusp: 2.0 cm (1.5 - 2.6) LA Diam: 3.3 cm (2.7 - 3.8) MV EXCURSION: 15.271 mm (> 18.000) MV EF SLOPE: 147 mm/s (70 - 150) EPSS: 0.9 cm MV E Natan: 0.53 m/s MV DecT: 149 ms MV A Natan: 0.46 m/s MV E/A Ratio: 1.15 RAP: 15.00 mmHg RVSP: 20.09 mmHg FINDINGS -------- This was a technically good study. The left ventricular size is normal. There is borderline concentric left ventricular hypertrophy. Overall left ventricular systolic function is mildly impaired with, an EF between 45 - 50 %. The d iastolic filling pattern is normal for the age of the patient 9.07. The right ventricle is normal in size. The left atrial size is normal. Normal LA size by volume 22+/-6 ml/m2. The right atrial size is normal. Interatrial and interventricular septum intact. The aortic valve is trileaflet and appears structurally normal. The mitral valve is normal. There is trace mitral regurgitation. The tricuspid valve appears structurally normal. Trace tricuspid regurgitation present. Right roque tricular systolic pressure is normal at < 35 mmHg. There is no pulmonic regurgitation present. The aortic root size is normal. The inferior vena cava is mildly dilated. There is no pericardial effusion. CONCLUSIONS -------- 1. The left ventricular size is normal. 2. There is borderline concentric left ventricular hypertrophy. 3. Overall left ventricular systolic function is mildly impaired with, an EF between 45 - 50 %. 4. The diastolic filling pattern is normal for the age of the patient 9.07 5. There is trace mitral regurgitation. 6. Trace tricuspid regurgitation present. 7. The inferior vena cava is mildly dilated. 8. There is no pericardial effusion. CRIMPER OPERATOR: Magda Zaragoza RDCS
== END | disposition home or self-care (01) ==
LOC: RADECHMAIN 11:54
PROVIDERS: ATTEND Internal Medicine
DX: Q87.40 Marfan syndrome, unspecified (principal); I34.0 Nonrheumatic mitral (valve) insufficiency; I07.1 Rheumatic tricuspid insufficiency
CPT/HCPCS: 93306

== ENCOUNTER → 2021-01-12 | Outpatient (CLI) | payer MEDICARE, OTHER ==
--- NOTE | 2021-01-12 16:22 | MR ---
EXAMINATION TYPE: MR thoracic spine wo con DATE OF EXAM: 01/12/2021 COMPARISON: HISTORY: Pain with hyper-reflexia of lower extremities, left greater than right CONTRAST: None TECHNIQUE: Multiplanar, multiecho imaging on a 3.0 Shanel magnet is performed through the thoracic spi ne. Spinal cord maintains normal signal through its visualized course. Vertebral body alignment is normal. Vertebral body heights are preserved. Some mild right paracentral disc bulging at T7-T8 is present with minimal anterior thecal sac contact . No spinal canal stenosis is evident. No cord contact is evident. There is mild right paracentral di sc bulging T5-6 with mild anterior thecal sac compression. No cord contact or spinal canal stenosis i s present. Disc desiccation is present T5-6 T6-7 and. To a Mild degree disc desiccation is present T8-9 and T9-1 0. No spinal canal stenosis is evident. IMPRESSIONS: 1. Mild right paracentral disc bulging at T5-6 and T7-8 without cord contact or stenosis. 2. Mid thoracic spine disc desiccation discussed above
== END ==
LOC: RADMRIMAIN 11:39
PROVIDERS: ATTEND Internal Medicine
DX: M51.24 Other intervertebral disc displacement, thoracic region (principal)
CPT/HCPCS: 72146

== ENCOUNTER → 2021-04-13 | Outpatient (CLI) | payer MEDICARE, OTHER ==
--- NOTE | 2021-04-13 12:30 | MR ---
EXAMINATION TYPE: MR cervical spine wo con DATE OF EXAM: 04/13/2021 COMPARISON: None HISTORY: Cervical pain, intermittent numbness/weakness left face, arm and leg TECHNIQUE: Multiplanar, multisequence images of the cervical spine were acquired. C2-C3: No evidence for degenerative disc disease. No disc bulge/herniation or protrusion. No Canal stenosis. Foramina are patent bilaterally. C3-C4: There is some neural foraminal encroachment. Circumferential extension endplate disc complex i s present extending posteriorly causing anterior mass effect on the thecal sac. Uncovertebral joint h ypertrophy, foraminal encroachment greater on the right and left C4-C5: There is bilateral uncovertebral joint hypertrophy, facet arthropathy causing foraminal encroa chment. Posterior broad-based disc bulge causes mild anterior mass effect on the thecal sac. C5-C6: Posterior disc bulge somewhat eccentric towards the left causing anterolateral mass effect on the thecal sac. Suspect some mild foraminal encroachment left greater than right. C6-C7: There is some foraminal encroachment bilaterally, bilateral vertebral joint hypertrophy, circu mferential posterior extension endplate disc complex causes mild anterior mass effect on the thecal s ac. C7-T1: No evidence for degenerative disc disease. No disc bulge/herniation or protrusion. No Canal stenosis. Foramina are patent bilaterally. Cervical segments are intact. There is normal alignment. Cervical spinal cord is of normal signal. Craniovertebral junction relationships are within normal limits. Cervical vertebral bodies show pre served height. There is some loss of disc space at C4-5, C3-4, C6-7 and C4-5. Is multilevel spondylos is. No significant spinal stenosis. Mucosal disease is incidentally noted in the sphenoid sinus. Ther e is a spinal curvature. IMPRESSION: Degenerative disc disease, multilevel foraminal encroachment. No significant spinal stenosis. Thoraci c scoliosis.
--- NOTE | 2021-04-13 13:15 | FL ---
EXAMINATION TYPE: FL barium swallow DATE OF EXAM: 04/13/2021 CLINICAL HISTORY: Dysphasia. Solids and liquids getting stuck over last several months increasing in severity per patient. TECHNIQUE: A double contrast esophagram is performed utilizing air and barium. A total of 23 second s of fluoroscopic time was utilized during procedure and 49 images obtained COMPARISON: Same day MRI cervical spine study. FINDINGS: The esophagus shows satisfactory motility and emptying into the stomach. No abnormal outpo uching or diverticulum. No evidence of fixed hiatal hernia or stricture noted. No significant gastroe sophageal reflux was seen during real time performance of this study. IMPRESSION: No significant abnormality is seen to account for patient's symptoms.
== END | disposition home or self-care (01) ==
LOC: RADUSWWP 08:57
PROVIDERS: ATTEND Internal Medicine
DX: M50.30 Other cervical disc degeneration, unspecified cervical region (principal); M99.71 Connective tissue and disc stenosis of intervertebral foramina of cervical region; M41.84 Other forms of scoliosis, thoracic region; R13.10 Dysphagia, unspecified
CPT/HCPCS: 72141; 74220

== ENCOUNTER → 2021-10-11 | Outpatient (CLI) | payer MEDICARE, OTHER ==
--- NOTE | 2021-10-12 08:14 | CT ---
EXAMINATION TYPE: CT abdomen pelvis wo/w con DATE OF EXAM: 10/11/2021 COMPARISON: INDICATION: RLQ pain. Previous hernia sx. Pt states pain is familiar to what he experienced prior to sx DLP: 650.70 mGycm, Automated exposure control for dose reduction was used. CONTRAST: 100 mL of Isovue 300. Study performed with Oral Contrast TECHNIQUE: Axial images were obtained from above the diaphragm to the pubic rami in the axial plane a t 5 mm thick sections. Reconstructed images are reviewed on the computer in the coronal plane. FINDINGS: Limited CT sections are obtained the lung bases. The lung bases are clear. CT ABDOMEN: Liver: There is ar 1.2 cm cyst within the right lobe liver Spleen: Normal Pancreas: Normal Adrenal glands: The adrenal glands are normal. Gallbladder: Normal Kidneys: No masses are evident. No hydronephrosis is present. No cysts are present. Delayed images were obtained through the kidneys, which remain unremarkable. Aorta: Vascular calcification is within the aorta. Inferior vena cava: Normal. CT PELVIS: Loops of bowel within the abdomen and pelvis are normal. There are few diverticuli within the sigmoi d colon. There are loops of bowel which are incompletely distended or lack oral contrast limiting t heir evaluation. Appendix: Not identified. No suspicious dilated tubular structure or inflammatory change is evident. Urinary bladder: Normal. Genitourinary structures: Prostate appears normal Osseous structures: No suspicious lytic or sclerotic lesions. IMPRESSIONS: 1. Nonvisualized appendix. Correlate with the surgical history. No suspicious changes to suggest acu te appendicitis. Clinical management will be recommended. 2. No suspicious abnormality to account for patient's symptoms.
== END | disposition home or self-care (01) ==
LOC: RADCTMAIN 16:24
PROVIDERS: ATTEND Internal Medicine
DX: R10.31 Right lower quadrant pain (principal)
CPT/HCPCS: 74178; Q9967

== ENCOUNTER → 2022-01-07 | Outpatient (CLI) | payer MEDICARE, OTHER ==
--- NOTE | 2022-01-07 08:27 | CT ---
EXAMINATION TYPE: CT sinus wo con DATE OF EXAM: 01/07/2022 COMPARISON: CT brain dated 11/07/2020 HISTORY: Chronic maxillary sinusitis CT DLP: 616 mGycm. Automated Exposure Control for Dose Reduction was Utilized. TECHNIQUE: CT scan of the sinuses is performed without contrast, axial images are obtained, coronal r eformatted images are also reviewed. FINDINGS: Status post endoscopic sinus surgery with left maxillary antrostomy, please correlate with the operat pablo report. Circumferential mucosal thickening of the maxillary sinuses with air-fluid level within t he right maxillary sinus denoting acute on top of chronic sinusitis. Thick sclerotic kirby of the max illary sinuses consistent with chronic inflammatory changes. Obstructed right infundibulum by mucosal thickening with mucosal thickening of the left infundibulum yet still patent. Mild mucosal thickening of the nasal fossa. Irregular bony nasal septum convex to the right side ante riorly and to the left side posteriorly. Previous left middle and left inferior turbinectomy with par adoxical right middle turbinectomy. Extensive mucosal thickening of the ethmoid air cells with slight bony resorption. Mucosal thickening of the sphenoid sinus with thickened kirby consistent with chron ic inflammatory changes. Obstructed sphenoethmoidal recesses by mucosal thickening. Mild mucosal thickening of the left fronta l sinus compartment with suspected obstructed frontoethmoidal recesses. Hypopneumatized mastoid air c ells more on the right side. Unremarkable orbits. IMPRESSION: Previous endoscopic sinus surgery, please correlate with the patient's operative report. Findings are consistent with chronic sinusitis with suspected acute on top of chronic right maxillary sinusitis as described above.
== END | disposition home or self-care (01) ==
LOC: RADCTMAIN 07:10
PROVIDERS: ATTEND Internal Medicine
DX: J34.89 Other specified disorders of nose and nasal sinuses (principal)
CPT/HCPCS: 70486

== ENCOUNTER → 2022-01-19 | Outpatient (CLI) | payer MEDICARE, OTHER ==
--- NOTE | 2022-01-19 15:49 | MR ---
EXAMINATION TYPE: MR cervical spine wo con DATE OF EXAM: 01/19/2022 COMPARISON: 04/13/2021 HISTORY: right arm weakness Multiplanar multi echo imaging of the cervical spine without contrast. Normal alignment. There is mild degenerative disc space narrowing at C6-7. There is mild posterior di sc bulging at C3-4 and C5-6 and C6-7. There is developmentally adequate spinal canal. No spinal steno sis. Cervical spinal cord has normal signal pattern. There is no edema. Brainstem is intact. Posterio r elements are intact. There is no compression fracture. I see no bony destructive process. There is no cervical paraspinal mass. IMPRESSION: Mild spondylotic changes and posterior disc bulging as above. No spinal stenosis. No fracture.
== END | disposition home or self-care (01) ==
LOC: RADMRIMAIN 14:35
PROVIDERS: ATTEND Internal Medicine
DX: M47.22 Other spondylosis with radiculopathy, cervical region (principal); M50.123 Cervical disc disorder at C6-C7 level with radiculopathy
CPT/HCPCS: 72141

== ENCOUNTER → 2022-02-01 | Outpatient (CLI) | payer MEDICARE, OTHER ==
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
== END | disposition home or self-care (01) ==
LOC: RADMRIMAIN 07:51
PROVIDERS: ATTEND Internal Medicine
DX: M51.16 Intervertebral disc disorders with radiculopathy, lumbar region (principal); J34.89 Other specified disorders of nose and nasal sinuses
CPT/HCPCS: 70553; 72158; A9585

== ENCOUNTER → 2023-10-15 | Outpatient (CLI) | payer MEDICARE, OTHER ==
--- NOTE | 2023-10-17 13:09 | MR ---
EXAM: MR wrist RT wo con DATE OF EXAM: 10/15/2023 COMPARISON: Right wrist radiograph 10/14/2023 HISTORY: Rt wrist lump on anterior right side TECHNIQUE: Multiplanar, multisequence images of the right wrist were acquired without contrast. FINDINGS: BONES/JOINTS: Degenerative subcortical bone marrow edema and subchondral sclerosis at the triscaphe j oint. Normal alignment. No ulnar variance. Distal radioulnar joint is normal. No joint effusion. LIGAMENTS: Scapholunate and lunotriquetral ligaments are normal. Extrinsic carpal ligaments are gabe l. Triangular fibrocartilaginous complex is normal. TENDONS: Flexor tendons are intact. There is a fluid collection within the flexor carpi radialis tend on sheath at the level of the distal radius and proximal carpal row, corresponds to the skin marker; this fluid collection measures 0.9 x 1.9 x 3.3 cm. More distally, at the level of the flexor carpi ra dialis insertion on the second metacarpal, there is a smaller fluid collection within the tendon. Tra ce amount of fluid within the tendon sheath of the extensor pollicis brevis/abductor pollicis longus tendon sheath at the level of the first carpometacarpal joint. Extensor tendons are intact.. SOFT TISSUES: Carpal tunnel is normal. Guyon's canal is normal. No bursal distention. No fluid collec tion. NEUROVASCULAR: The median nerve is normal in size, signal, and location. The ulnar nerve is normal in size, signal, and location. Vascular structures are normal OTHER: Normal. IMPRESSION: 1. Synovial cyst involving the flexor carpi radialis tendon sheath. 2. Small amount of fluid within the first extensor compartment tendon sheath, may relate to a synovia l cyst and/or tenosynovitis. 3. Degenerative changes triscaphe joint.
== END | disposition home or self-care (01) ==
LOC: RADMRIMAIN 10:59
PROVIDERS: ATTEND Orthopaedic Surgery Hand Surgery
DX: M19.031 Primary osteoarthritis, right wrist (principal); M71.331 Other bursal cyst, right wrist

== ENCOUNTER → 2023-10-24 | Outpatient (CLI) | payer MEDICARE, OTHER ==
[2023-10-24 15:38] LABS: BUN/Creat Ratio 20.18 Ratio (12.00-20.00); Blood Urea Nitrogen 22.2 mg/dL (9.0-27.0); Calcium 10.1 mg/dL (8.7-10.3); Carbon Dioxide 28.9 mmol/L (21.6-31.8); Chloride 104 mmol/L (96-109); Glucose 109 mg/dL (70-110); Potassium 5.4 mmol/L (3.5-5.5); Sodium 142 mmol/L (135-145)
[2023-10-24 16:39] LABS: Basophils # (A) 0.07 X 10*3/uL (0.00-0.10); Basophils % (A) 0.9 %; Eosinophils # (A) 0.66 X 10*3/uL (0.04-0.35); Eosinophils % (A) 8.1 %; HCT 46.9 % (39.6-50.0); HGB 15.2 g/dL (13.0-17.0); Lymphocytes # (A) 1.89 X 10*3/uL (0.90-5.00); Lymphocytes % (A) 23.1 %; MCH 29.3 pg (27.0-32.0); MCHC 32.4 g/dL (32.0-37.0); MCV 90.5 FL (80.0-97.0); Mean Platelet Volume 10.3 FL (9.5-12.2); Monocytes # (A) 0.75 X 10*3/uL (0.20-1.00); Monocytes % (A) 9.2 %; NRBC Per 100 WBC 0 X 10*3/uL (0.00-0.01); Neutrophils # (A) 4.78 X 10*3/uL (1.80-7.70); Neutrophils % (A) 58.5 %; Platelet Count 250 X 10*3/uL (140-440); RBC 5.18 X 10*6/uL (4.40-5.60); RDW 12.6 % (11.5-14.5); WBC 8.17 X 10*3/uL (4.50-10.00)
== END | disposition home or self-care (01) ==
LOC: LABPAT 07:45
PROVIDERS: ATTEND Orthopaedic Surgery Hand Surgery
DX: Z01.812 Encounter for preprocedural laboratory examination (principal); R22.31 Localized swelling, mass and lump, right upper limb; M67.831 Other specified disorders of synovium, right wrist
CPT/HCPCS: 80048; 85025

== ENCOUNTER 2023-10-29 09:37 | Day surgery (SDC) | payer MEDICARE, OTHER ==
--- NOTE | 2023-10-28 10:05 | P.HPOR ---
History of Present Illness H&P Date: 10/28/23 Subjective: This is a 58 year old male that presents today for follow up evaluation regarding a 8 month history of a progressively increasing in size volar wrist mass. He denies any injury or inciting event. He denies any constant numbness or tingling. He states the wrist feels painful and sore after repetitive activities localized to the area of the mass. He has tried bracing and NSAIDs with no relief. Physical Examination: RUE: AIN/PIN/Radial/Ulnar/Median motor intact. Radial/Ulnar/Median SILT. 2+/4 Radial/Ulnar pulses palpated. 5/5 APB, 5/5 FDI. Negative Finkelsteins, negative CMC grind, negative Durkan's compression. Broad 3 x 5 cm soft tissue mass present on the volar radial aspect of the wrist just slightly ulnar to the radial artery. TTP over FCR with pain with resisted wrist flexion. Imaging: MRI of the right wrist demonstrates synovial cyst of the FCR tendon sheath measuring 2x3.5cm Impression: 1.) FCR tendonitis with associated soft tissue mass Plan: Diagnosis and treatment options were discussed with the patient. We discussed continued conservative treatment vs operative treatment in the form of a right wrist volar soft tissue mass excision and FCR tendon sheath decompression. Due to having failed conservative treatment he wishes to go forward with surgical intervention. Risks and benefits of surgery including bleeding, infection, shanon ge to surrounding tissue, need for further surgery, residual numbness were discussed and the patient wished to go forward with surgery. The patient was agreeable with this plan. CC: Liane Peng DO -Nickolas Blackmon DO Orthopedic Hand/Upper Extremity Surgeon Past Medical History Past Medical History: Asthma, COPD, GERD/Reflux, Hyperlipidemia, Myocardial Infarction (MT), Neurologic Disorder, Osteoarthritis (OA) Additional Past Medical History / Comment(s): hx DIFFICULTY SWALLOWING, ABDOMINAL PAIN, UNDIAGNOSED MOTOR NEURON DISORDER, "HAS OCCASIONAL rt foot drag" marfans syndrome, OCC. PANCREATITIS Last Myocardial Infarction Date:: unknown History of Any Multi-Drug Resistant Organisms: None Reported Past Surgical History: Heart Catheterization, Hernia Repair, Orthopedic Surgery Additional Past Surgical History / Comment(s): 09/13/19 rt thigh muscle bx, NASAL POLYPS, RT KNEE ARTHROSCOPY , COLONOSCOPY, EGD Past Anesthesia/Blood Transfusion Reactions: Motion Sickness, Postoperative Nausea & Vomiting (PONV) Smoking Status: Former smoker - Past Family History Father Family Medical History: Cancer Medications and Allergies Home Medications Medication Instructions Recorded Confirmed Type ALPRAZolam [Xanax] 0.5 tab PO TID PRN 08/25/18 10/27/23 History Baclofen [Lioresal] 10 mg PO TID PRN 08/25/18 10/27/23 History HYDROcodone/APAP 10-325MG [Fifield 1 tab PO TID 08/25/18 10/27/23 History 10-325] carvediloL [Coreg] 3.125 mg PO DAILY 11/07/20 10/27/23 History Aspirin 81 mg PO HS 10/27/23 10/27/23 History Atorvastatin [Lipitor] 20 mg PO HS 10/27/23 10/27/23 History Dicyclomine [Bentyl] 10 mg PO TID 10/27/23 10/27/23 History Ezetimibe [Zetia] 10 mg PO HS 10/27/23 10/27/23 History Omeprazole 20 mg PO DAILY 10/27/23 10/27/23 History Unk Chace Supplement 1 tab PO DAILY 10/27/23 10/27/23 History Unk Zenpep Supplement 1 tab PO AC-TID 10/27/23 10/27/23 History Allergies Allergy/AdvReac Type Severity Reaction Status Date / Time bacitracin Allergy Rash/Hives Verified 11/07/20 15:23 [From Neosporin ([id number])] latex Allergy Rash/Hives Verified 11/07/20 15:23 neomycin Allergy Rash/Hives Verified 11/07/20 15:23 [From Neosporin ([id number])] polymyxin B Allergy Rash/Hives Verified 11/07/20 15:23 [From Neosporin ([id number])] sulfamethoxazole Allergy "LEGS BURN" Verified 11/07/20 15:23 [From Bactrim] trimethoprim [From Bactrim] Allergy "LEGS BURN" Verified 11/07/20 15:23 gluten AdvReac Abdominal Verified 11/07/20 15:23 Pain prednisone AdvReac pt gets Verified 10/27/23 11:42 violent FLU VACCINE Allergy "DEATHLY Uncoded 10/27/23 11:01 ILL R/T EGG ALLERGY" Physical Examination Osteopathic Statement: *. No significant issues noted on an osteopathic structural exam other than those noted in the History and Physical/Consult.
[~2023-10-29 09:37] MED LIST changes: -DEXAMETHASONE SOD PHOSPHATE 10 MG/ML 1 ML VIAL IV ONE; -DEXAMETHASONE SOD PHOSPHATE 4 MG/ML 1 ML VIAL ONE; -GLYCOPYRROLATE 0.2 MG/ML 2 ML VIAL ONE; -HEPARIN SODIUM,PORCINE 5,000 UNIT/ML 1 ML VIAL SQ ONE; +HYDROmorphone 0.5 MG/0.5 ML SYRINGE IVP PRN; -KETAMINE 10 MG/ML 20 ML VIAL ONE; -KETOROLAC 30 MG/ML 1 ML VIAL IVP ONE; -LIDOCAINE 1% INJ 10MG/ML (20 ML MDV) ONE; -LIDOCAINE 1%-EPI 1:100,000 20 ML VIAL SQ ONE; -MIDAZOLAM 2 MG/2 ML VIAL IVP ONE; -MIDAZOLAM 2 MG/2 ML VIAL ONE; -NEOSTIGMINE 1 MG/ML 10 ML VIAL ONE; +ONDANSETRON 4 MG/2 ML VIAL IVP ONE; -PROPOFOL 10 MG/ML 20 ML VIAL IV ONE; -ROCURONIUM BROMIDE 10 MG/ML 10 ML VIAL IV ONE; -ROPIVACAINE 5 MG/ML 30 ML VIAL ONE; -SCOPOLAMINE 1.5MG/72HR PATCH TRANSDERM ONE; -fentaNYL (PF) 50 MCG/ML 2 ML AMP IVP ONE; -fentaNYL (PF) 50 MCG/ML 2 ML AMP ONE
[2023-10-29] MEDS ORDERED: fentaNYL (PF) 50 MCG/ML 2 ML AMP ONE (10:31)
[2023-10-29] MEDS ORDERED: LIDOCAINE 1% INJ 10MG/ML (20 ML MDV) ONE (10:31)
[2023-10-29] MEDS ORDERED: PROPOFOL 10 MG/ML 20 ML VIAL IV ONE (10:31)
[2023-10-29] MEDS ORDERED: MIDAZOLAM 2 MG/2 ML VIAL ONE (10:31)
[2023-10-29] MEDS ORDERED: KETOROLAC 15 MG/ML 1 ML VIAL ONE (10:31)
[2023-10-29] MEDS ORDERED: BUPIVACAINE (PF) 0.5% 30 ML VIAL SQ ONE (10:57)
--- NOTE | 2023-10-29 11:24 | P.OP ---
Date of Procedure: 10/29/23 Preoperative Diagnosis: 1.) Right wrist volar soft tissue mass 2.) Right wrist FCR tendonitis Postoperative Diagnosis: 1.) Right wrist volar soft tissue mass 2.) Right wrist FCR tendonitis Procedure(s) Performed: 1.) Right wrist volar soft tissue mass excision 2.) Right wrist FCR tendon sheath decompression Anesthesia: ESTEFANI Surgeon: Nickolas Blackmon Estimated Blood Loss (ml): 0 Pathology: other (Right wrist volar soft tissue mass) Condition: stable Disposition: PACU Description of Procedure: This is a 58 year old male who presents today for a right wrist volar soft tissue mass excision after having failed conservative treatment. Risks and benefits of surgery were discussed with the patient including bleeding, damage to surrounding tissue, infection, need for further surgery, recurrence, as well as risks of anesthesia including pulmonary embolism and even and the dc ent wished to proceed with surgical intervention. The patient was seen in the pre-operative area by myself. Consent and H&P were completed and updated. The correct extremity was marked in the pre-operative area by myself and all other questions were answered. Operative Narrative: The patient was brought to the operating room by the department of anesthesia. They remained on the portable stretcher and a rolling hand table was brought to the side of the operative extremity. Pre-operative time out was performed indicating the correct patient, procedure and laterality. All in the room agreed. Pre-operative antibiotics were given prior to skin incision. The patient was then drifted off to sleep by the department of anesthesia. A nonsterile tourniquet was then applied to the operative extremity and the right upper extremity was then prepped and draped in normal sterile fashion. The operative extremity was the exsanguinated with an esmarch bandage and the tourniquet was inflated to 250mmHg. A longitudinal incision was made over the volar aspect of the wrist overlying the prominent soft tissue mass located on a volar radial portion of the wrist. Blunt dissection was taken down through subcutaneous tissues taking care to protect the radial artery and surrounding branches. After subcutaneous dissection was performed a 4x3cm multilobulated clear gelatinous mass was identified overlying the FCR tendon originating from the FCR tendon sheath. The mass was carefully dissected out and direct communication of the stalk was followed down to the deep FCR tendon sheath. The mass was collected and sent to pathology. The FCR sheath at the level of the wrist was then released under direct visualization. The FCR tendon was then retracted radially and the floor of the FCR sheath was incised and the floor of the FCR tunnel was incised with 15 blade scapel to complete the decompression. The wound was then irrigated an closed with 4-0 Monocryl suture followed by steri strips and 10cc's of 0.5 % bupivacaine was injected into the surgical area. A soft dressing consisting of 4x4s, cast padding and an joseph wrap was applied. Tourniquet was let down and the digits had immediate normal perfusion. The patient was then transferred to PACU in stable condition. Nickolas Blackmon DO Orthopedic Hand/Upper Extremity Surgeon
[2023-10-29 12:02] VITALS: TEMP 97
[2023-10-29 12:27] VITALS: RESP 16
[2023-10-29 12:52] VITALS: BP 145/87; PULSE 59
== END 2023-10-29 12:54 | disposition home or self-care (01) ==
LOC: OR 09:37
PROVIDERS: ATTEND Orthopaedic Surgery Hand Surgery
DX: M67.431 Ganglion, right wrist (principal); M67.831 Other specified disorders of synovium, right wrist; E78.5 Hyperlipidemia, unspecified; I25.2 Old myocardial infarction; J44.89 Other specified chronic obstructive pulmonary disease; K21.9 Gastro-esophageal reflux disease without esophagitis; M19.90 Unspecified osteoarthritis, unspecified site; Z87.891 Personal history of nicotine dependence; Z88.1 Allergy status to other antibiotic agents; Z88.2 Allergy status to sulfonamides; Z88.7 Allergy status to serum and vaccine; Z88.8 Allergy status to other drugs, medicaments and biological substances; Z91.040 Latex allergy status; Z79.82 Long term (current) use of aspirin; Z79.899 Other long term (current) drug therapy
CPT/HCPCS: 88305; 84132; J2250; J2405; J2001; J3010; J1885; J2704; J0665; 88304

== ENCOUNTER → 2023-12-30 | Outpatient (CLI) | payer MEDICARE, OTHER ==
--- NOTE | 2023-12-30 15:20 | CT ---
EXAMINATION TYPE: CT abdomen wo/w con CT DLP: 580 mGycm, Automated exposure control for dose reduction was used. DATE OF EXAM: 12/30/2023 11:54 AM COMPARISON: CT abdomen pelvis most recent from 10/11/2021 CLINICAL INDICATION:Male, 58 years old with history of R10.11 Right mid abdominal pain; right mid abd ominal pain for years, pt states pain is getting worse TECHNIQUE: Axial CT abdomen wo/w con;Sagittal and coronal reformats were created on a separate works tation. Contrast used:100 mL of Isovue 300 with IV Contrast, (none if empty) Oral contrast used: with Oral Contrast (none if empty) FINDINGS: LOWER CHEST: Unremarkable ABDOMEN LIVER: Hypodense probable hepatic cyst. GALLBLADDER AND BILE DUCTS: Unremarkable. PANCREAS: Unremarkable. SPLEEN: Unremarkable. ADRENAL GLANDS: Unremarkable. KIDNEYS AND URETERS: No evidence of hydronephrosis or renal calculus. The ureters are unremarkable. STOMACH AND BOWEL: No evidence of bowel obstruction. The appendix is normal. PERITONEUM/RETROPERITONEUM: No evidence of pneumoperitoneum or free fluid. VASCULATURE: No evidence of aortic aneurysm. Dilation of the infrarenal abdominal aortic arch 24 mm. Narrowing of the left renal vein as it courses between the superior mesenteric artery and aorta. MUSCULOSKELETAL: No acute osseous abnormalities LYMPH NODES: No gross evidence for lymphadenopathy. SOFT TISSUE/ABDOMINAL WALL: Unremarkable IMPRESSION: 1. No evidence for acute abdominal process. 2. Infrarenal abdominal aorta ectasia up to 24 mm. 3. Narrowing of the left renal vein as it crosses the aorta which can be seen in setting of [place] er syndrome. Findings are not significantly changed from 2019.
== END | disposition home or self-care (01) ==
LOC: RADCTMAIN 08:21
PROVIDERS: ATTEND Internal Medicine
DX: I77.811 Abdominal aortic ectasia (principal); I87.1 Compression of vein
CPT/HCPCS: 74170; Q9967

== ENCOUNTER → 2025-01-25 | Outpatient (CLI) | payer MEDICARE ==
--- NOTE | 2025-01-25 09:48 | US ---
EXAMINATION TYPE: US abdomen complete DATE OF EXAM: 01/25/2025 COMPARISON: CT Dec 2023 CLINICAL INDICATION: Male, 59 years old with history of R10.9 ABD PAIN; Generalized ABD pain TECHNIQUE: Grayscale and color Doppler imaging of the abdomen was performed. FINDINGS: EXAM MEASUREMENTS: Liver Length: 15.6 cm Gallbladder Wall: 0.1 cm CBD: 0.5 cm, color Doppler imaging was utilized to isolate the common bile duct for measurement. Spleen: 9.1 cm Right Kidney: 10.4 x 3.5 x 5.1 cm Left Kidney: 10.0 x 5.5 x 3.9 cm CHIEF OPERATOR LOCK TENDER NOTES: Pancreas: 3mm panc card Liver: wnl, no dilated ducts, cyst right lateral lobe= 2.2 x 2.1 x 2.4 cm Gallbladder: wnl Evidence for sonographic Waddell's sign: No CBD: wnl Spleen: wnl Right Kidney: wnl, No hydronephrosis, calculi or masses seen Left Kidney: wnl, No hydronephrosis, calculi or masses seen Upper IVC: wnl Abd Aorta: Distal portion < 3cm, however appears to bulge at 2.7 cm, mid portion= 1.7 cm The liver is homogenous. The intrahepatic portion of the IVC and proximal abdominal aorta are within normal limits. There is no evidence of cholelithiasis. Common bile duct is unremarkable. The visu alized portions of the pancreas are homogenous. The spleen is unremarkable. Kidneys are symmetric a nd free of hydronephrosis. No renal lesions are seen. IMPRESSION: Simple cyst of the right hepatic lobe. [facility], , 01/25/2025 9:46 AM
== END | disposition home or self-care (01) ==
LOC: RADUSWWP 09:09
PROVIDERS: ATTEND Internal Medicine
DX: K76.89 Other specified diseases of liver (principal)
CPT/HCPCS: 76700